=== PATIENT | female | born 1955 | race Caucasian/White ===

== ENCOUNTER 2020-09-14 10:06 | Inpatient (IN) ==
[2020-09-14 13:27] LABS: Calcium 10.4 mg/dL (8.6-10.3); Potassium 4.8 mEq/L (3.5-5.1)
[2020-09-14] MEDS ORDERED: *HR* Labetalol 20 MG/4 ML SYRINGE IVP ONE (13:34)
[2020-09-14 13:43] LABS: Basophils # 0.1 K/mcL (0.0-0.2); Basophils % 0.7 %; Eosinophils # 0.7 K/mcL (0.0-0.6); Eosinophils % 6.3 %; Hematocrit 43.2 % (35.3-44.9); Hemoglobin 13.9 g/dL (11.5-15.4); Immature Granulocytes % 0.9 % (0-4); Immature Platelets 3.8 % (1.1-6.1); Lymphocytes # 1.8 K/mcL (0.6-4.6); Lymphocytes % 15.7 %; Mean Corpuscular HGB Conc 32.2 g/dL (31.6-35.5); Mean Corpuscular Hemoglobin 33.2 pg (28.0-33.3); Mean Corpuscular Volume 103.1 fL (83.0-100.0); Mean Platelet Volume 11.9 fL (9.4-12.4); Monocytes # 1.1 K/mcL (0.0-1.3); Monocytes % 10.1 %; Neutrophils # 7.4 K/mcL (1.6-8.9); Platelet Count 113 K/mcL (140-400); Red Blood Count 4.19 M/mcL (3.82-4.97); Red Cell Distribution Width 14.2 % (11.5-14.5); Segmented Neutrophils % 66.3 %; Troponin I 0.05 ng/mL (< 0.04); White Blood Count 11.2 K/mcL (4.3-11.1)
[2020-09-14 14:02] LABS: Platelet Estimate Decreased (Normal)
[2020-09-14 14:03] LABS: Macrocytosis Present (Not Present)
[2020-09-14] MEDS ORDERED: lisinopriL 10 MG TABLET PO ONE (14:04)
[2020-09-14] MEDS ORDERED: *HR* OxyCODONE/APAP 5/325 TABLET PO ONE (14:04)
[2020-09-14] MEDS ORDERED: Furosemide 20 MG/2 ML VIAL IVP ONE (14:05)
[2020-09-14] MEDS ORDERED: Ondansetron 4 MG/2 ML VIAL IVP PRN (15:13)
[2020-09-14] MEDS ORDERED: Naloxone 0.4 MG/ML INJ IVP PRN (15:13)
[2020-09-14] MEDS ORDERED: Nitroglycerin 0.4 MG TAB.SUBL SL PRN (15:17)
[2020-09-14] MEDS ORDERED: Perflutren Lipid Microsphere 1.3 ML in 0.9 % Sodium Chloride 8.7 ML IVP PRN (15:18)
[2020-09-14] MEDS ORDERED: D5% in Water 1,000 ML IVC PRN (15:20)
[2020-09-14] MEDS ORDERED: *HR* Dextrose 50 % in Water (Vial) 50 ML VIAL IVP PRN (15:20)
[2020-09-14] MEDS ORDERED: Dextrose Gel 15 GM/37.5 ML TUBE PO PRN ×2 (15:20)
[2020-09-14] MEDS: Insulin LISPRO 300 UNITS/3 ML VIAL SUBQ SCH ×2 (17:40→20:03)
[2020-09-14] MEDS ORDERED: Furosemide 40 MG/4 ML VIAL IVP SCH (18:00)
[2020-09-14] MEDS ORDERED: Furosemide 40 MG/4 ML VIAL IVP ONE (18:00)
[2020-09-14 19:53] LABS: Estimated Average Glucose 128 mg/dl; Hemoglobin A1C 6.1 %
[2020-09-14 20:04] LABS: Bilirubin,Urine Negative (Negative); Blood,Urine Negative (Negative); Clarity,Urine Clear (Clear); Color,Urine Light-Yellow (Yellow); Glucose,Urine (UA) Normal (Normal); Ketones,Urine Negative (Negative); Leukocyte Esterase,Urine Negative (Negative); Mucus,Urine Few per lpf (None-Few); Nitrite,Urine Negative (Negative); PH,Urine 6.5 pH Units (5.0-8.0); Protein,Urine 200 mg/dL (Neg-Trace); RBC,Urine 0-3 per hpf (0-3); Specific Gravity,Urine 1.011 (1.010-1.025); Squamous Epithelial Cell,Urine Few per hpf (None-Few); Urobilinogen,Urine Normal (Normal)
[2020-09-14] MEDS: *HR* Heparin 5,000 UNIT/ML VIAL SQ SCH (21:54)
[2020-09-14] MEDS ORDERED: Acetaminophen 325 MG TABLET PO PRN (22:12)
[2020-09-15 01:20] LABS: Basophils # 0.1 K/mcL (0.0-0.2); Basophils % 0.6 %; Eosinophils # 0.4 K/mcL (0.0-0.6); Eosinophils % 3.8 %; Hemoglobin 12.7 g/dL (11.5-15.4); Immature Granulocytes % 0.7 % (0-4); Lymphocytes # 1.2 K/mcL (0.6-4.6); Lymphocytes % 12.9 %; Mean Corpuscular Hemoglobin 32.2 pg (28.0-33.3); Mean Corpuscular Volume 104.1 fL (83.0-100.0); Monocytes # 0.9 K/mcL (0.0-1.3); Monocytes % 9.6 %; Neutrophils # 6.8 K/mcL (1.6-8.9); Platelet Count 130 K/mcL (140-400); Red Blood Count 3.94 M/mcL (3.82-4.97); Red Cell Distribution Width 14.2 % (11.5-14.5); Segmented Neutrophils % 72.4 %; White Blood Count 9.5 K/mcL (4.3-11.1)
[2020-09-15 01:45] LABS: Albumin 4.1 g/dL (3.5-5.7); Albumin/Globulin Ratio 1.8 (1.1-2.2); Bilirubin,Total 0.6 mg/dL (0.3-1.0); Calcium 10.1 mg/dL (8.6-10.3); Chol/HDL Ratio 2.9 (0-4.9); Globulin 2.3 g/dL (2.4-3.5); Potassium 4.2 mEq/L (3.5-5.1); Total Protein 6.4 g/dL (6.4-8.9); Troponin I 0.06 ng/mL (< 0.04)
[2020-09-15] MEDS: *HR* Heparin 5,000 UNIT/ML VIAL SQ SCH ×3 (06:23→21:14)
[2020-09-15] MEDS: Insulin LISPRO 300 UNITS/3 ML VIAL SUBQ SCH ×4 (08:45→21:13)
[2020-09-15] MEDS: Aspirin 81 MG TAB.CHEW PO SCH (08:49)
[2020-09-15] MEDS: lisinopriL 10 MG TABLET PO SCH (08:50)
[2020-09-15] MEDS ORDERED: Furosemide 40 MG/4 ML VIAL IVP SCH (09:00)
[2020-09-15] MEDS ORDERED: Ipratropium/Albuterol Neb 3 ML IH PRN (16:16)
[2020-09-15] MEDS: Famotidine 20 MG TABLET PO SCH (16:39)
[2020-09-15] MEDS: carvediloL 6.25 MG TABLET PO SCH (16:39)
[2020-09-15] MEDS ORDERED: Latanoprost 2.5 ML BOTTLE BOTH EYES SCH (21:00)
[2020-09-15] MEDS ORDERED: NIFEdipine XL (24 HR) 30 MG TAB.ER.24 PO SCH (21:00)
[2020-09-15] MEDS: Ascorbic Acid 500 MG TABLET PO SCH (21:13)
[2020-09-16] MEDS: *HR* Heparin 5,000 UNIT/ML VIAL SQ SCH (05:15)
[2020-09-16 06:48] VITALS: TEMP 98.1
[2020-09-16 07:32] LABS: Hemoglobin 12.6 g/dL (11.5-15.4); Platelet Count 120 K/mcL (140-400); Red Cell Distribution Width 14.5 % (11.5-14.5)
[2020-09-16 07:33] LABS: Basophils # 0.1 K/mcL (0.0-0.2); Eosinophils # 0.5 K/mcL (0.0-0.6); Eosinophils % 7.2 %; Hematocrit 40.9 % (35.3-44.9); Immature Granulocytes % 0.6 % (0-4); Lymphocytes % 22.1 %; Mean Corpuscular HGB Conc 30.8 g/dL (31.6-35.5); Mean Corpuscular Hemoglobin 32.5 pg (28.0-33.3); Mean Corpuscular Volume 105.4 fL (83.0-100.0); Mean Platelet Volume 10.7 fL (9.4-12.4); Monocytes # 0.9 K/mcL (0.0-1.3); Monocytes % 12.8 %; Neutrophils # 3.9 K/mcL (1.6-8.9); Red Blood Count 3.88 M/mcL (3.82-4.97); Segmented Neutrophils % 56.3 %
[2020-09-16 07:35] LABS: Lymphocytes # 1.6 K/mcL (0.6-4.6)
[2020-09-16] MEDS: Insulin LISPRO 300 UNITS/3 ML VIAL SUBQ SCH ×2 (07:48→12:09)
[2020-09-16 07:51] LABS: Calcium 10.1 mg/dL (8.6-10.3); Magnesium 2.1 mg/dL (1.6-2.6); Potassium 4.2 mEq/L (3.5-5.1)
[2020-09-16] MEDS: carvediloL 6.25 MG TABLET PO SCH (08:04)
[2020-09-16] MEDS: lisinopriL 10 MG TABLET PO SCH (08:04)
[2020-09-16] MEDS: Ascorbic Acid 500 MG TABLET PO SCH (08:04)
[2020-09-16] MEDS: Aspirin 81 MG TAB.CHEW PO SCH (08:04)
[2020-09-16] MEDS: Famotidine 20 MG TABLET PO SCH (08:05)
[2020-09-16] MEDS ORDERED: calcitrioL 0.25 MCG CAPSULE PO SCH (09:00)
[2020-09-16] MEDS ORDERED: allopurinoL 100 MG TABLET PO SCH (09:00)
[2020-09-16 11:24] VITALS: BP 144/63; PULSE 52; O2SAT 96
== END 2020-09-16 12:00 | disposition home or self-care (01) | DRG 199 ==
LOC: EMEROOARM 10:06 → 2ANU 10:06 → SUATTDRO 18:02
PROVIDERS: ADMIT Internal Medicine; ATTEND Pharmacist

== ENCOUNTER 2021-06-26 18:05 | Inpatient (IN) ==
[2021-06-26 19:01] LABS: Red Cell Distribution Width 15.5 % (11.5-14.5)
[2021-06-26 19:03] LABS: Basophils # 0.1 K/mcL (0.0-0.2); Eosinophils # 0.6 K/mcL (0.0-0.6); Eosinophils % 6.5 %; Hematocrit 41.7 % (35.3-44.9); Immature Granulocytes % 1.4 % (0-4); Immature Platelets 6.3 % (1.1-6.1); Lymphocytes % 11.8 %; Mean Corpuscular HGB Conc 31.2 g/dL (31.6-35.5); Mean Corpuscular Hemoglobin 33.4 pg (28.0-33.3); Mean Corpuscular Volume 107.2 fL (83.0-100.0); Mean Platelet Volume 11.4 fL (9.4-12.4); Monocytes # 0.9 K/mcL (0.0-1.3); Monocytes % 9.9 %; Nucleated Red Blood Cells 0.3 /100 WBC (0); Platelet Count 104 K/mcL (140-400); Red Blood Count 3.89 M/mcL (3.82-4.97); Segmented Neutrophils % 69.4 %; White Blood Count 8.6 K/mcL (4.3-11.1)
[2021-06-26] MEDS ORDERED: Aspirin 325 MG TABLET PO ONE (19:04)
[2021-06-26 19:08] LABS: INR 1.3; Prothrombin Time 14.2 Seconds (9.4-12.1)
[2021-06-26 19:11] LABS: Activated Partial Thrombo Time 38.7 Seconds (26.0-36.0)
[2021-06-26 19:25] LABS: Troponin I 0.08 ng/mL (< 0.04)
[2021-06-26 19:27] LABS: Albumin/Globulin Ratio 1.6 (1.1-2.2); Bilirubin,Direct 0.1 mg/dL (0.0-0.2); Bilirubin,Indirect 0.9 mg/dL (0.0-1.0); Calcium 9.8 mg/dL (8.6-10.3); Globulin 2.5 g/dL (2.4-3.5); Potassium 3.9 mEq/L (3.5-5.1); Total Protein 6.5 g/dL (6.4-8.9)
[2021-06-26] MEDS ORDERED: Furosemide 40 MG/4 ML VIAL IVP ONE (19:50)
[2021-06-26 20:14] LABS: Influenza A PCR Negative (Negative); Influenza B PCR Negative (Negative); Resp. Syncytial Virus PCR Negative (Negative)
[2021-06-26 20:15] LABS: SARS-CoV-2 by PCR (In House) Negative (Negative)
[2021-06-26] MEDS ORDERED: Naloxone 0.4 MG/ML INJ IVP PRN (20:27)
[2021-06-26] MEDS ORDERED: Perflutren Lipid Microsphere 1.3 ML in 0.9 % Sodium Chloride 8.7 ML IVP PRN (21:11)
[2021-06-26] MEDS ORDERED: niCARdipine 20 MG/200 ML MLS IVC ONE (23:58)
[2021-06-27] MEDS: niCARdipine 20 MG/200 ML MLS IVC SCH ×8 (00:03→23:07)
[2021-06-27] MEDS: Ondansetron 4 MG/2 ML VIAL IVP PRN ×2 (00:05→08:34)
[2021-06-27 01:57] LABS: Hematocrit 39.6 % (35.3-44.9); Hemoglobin 12.1 g/dL (11.5-15.4); Mean Corpuscular HGB Conc 30.6 g/dL (31.6-35.5); Mean Corpuscular Hemoglobin 32.9 pg (28.0-33.3); Mean Corpuscular Volume 107.6 fL (83.0-100.0); Mean Platelet Volume 11.2 fL (9.4-12.4); Platelet Count 101 K/mcL (140-400); Red Blood Count 3.68 M/mcL (3.82-4.97); Red Cell Distribution Width 15.4 % (11.5-14.5); White Blood Count 8.7 K/mcL (4.3-11.1)
[2021-06-27 02:13] LABS: Calcium 9.4 mg/dL (8.6-10.3); Potassium 3.6 mEq/L (3.5-5.1)
[2021-06-27 02:32] LABS: Troponin I 0.07 ng/mL (< 0.04)
[2021-06-27] MEDS ORDERED: Furosemide 40 MG/4 ML VIAL IVP SCH (09:00)
[2021-06-27] MEDS ORDERED: *HR* Labetalol 20 MG/4 ML SYRINGE IVP ONE (09:05)
[2021-06-27] MEDS ORDERED: Metoclopramide 10 MG/2 ML VIAL IVP ONE (09:17)
[2021-06-27] MEDS ORDERED: Dextrose 4 GM Chewable Tablets PO PRN ×2 (09:25)
[2021-06-27] MEDS ORDERED: *HR* Dextrose 50 % in Water (Syg) 50 ML SYRINGE IVP PRN (09:25)
[2021-06-27] MEDS ORDERED: D5% in Water 1,000 ML IVC PRN (09:25)
[2021-06-27 11:19] LABS: Estimated Average Glucose 114 mg/dl; Hemoglobin A1C 5.6 %
[2021-06-27] MEDS: Insulin LISPRO 300 UNITS/3 ML VIAL SUBQ SCH ×3 (11:49→20:34)
[2021-06-27] MEDS: *HR* Heparin 5,000 UNIT/ML VIAL SQ SCH (20:42)
[2021-06-28] MEDS: niCARdipine 20 MG/200 ML MLS IVC SCH ×6 (01:42→18:30)
[2021-06-28] MEDS: *HR* Heparin 5,000 UNIT/ML VIAL SQ SCH ×3 (05:21→21:23)
[2021-06-28 06:11] LABS: Hematocrit 40.1 % (35.3-44.9); Hemoglobin 12.1 g/dL (11.5-15.4); Mean Corpuscular HGB Conc 30.2 g/dL (31.6-35.5); Mean Corpuscular Hemoglobin 32.8 pg (28.0-33.3); Mean Corpuscular Volume 108.7 fL (83.0-100.0); Platelet Count 115 K/mcL (140-400); Red Blood Count 3.69 M/mcL (3.82-4.97); Red Cell Distribution Width 15.2 % (11.5-14.5); White Blood Count 8.2 K/mcL (4.3-11.1)
[2021-06-28 06:30] LABS: INR 1.2; Prothrombin Time 13.9 Seconds (9.4-12.1)
[2021-06-28 06:31] LABS: Albumin 3.7 g/dL (3.5-5.7); Albumin/Globulin Ratio 1.8 (1.1-2.2); Bilirubin,Total 0.9 mg/dL (0.3-1.0); Calcium 9.3 mg/dL (8.6-10.3); Globulin 2.1 g/dL (2.4-3.5); Magnesium 1.9 mg/dL (1.6-2.6); Potassium 3.9 mEq/L (3.5-5.1); Total Protein 5.8 g/dL (6.4-8.9)
[2021-06-28 06:53] LABS: Thyroid Stimulating Hormone 2.532 mcIU/mL (0.340-5.600)
[2021-06-28] MEDS ORDERED: Ondansetron ODT 4 MG TAB.RAPDIS PO PRN (07:51)
[2021-06-28] MEDS: Insulin LISPRO 300 UNITS/3 ML VIAL SUBQ SCH ×4 (08:02→19:41)
[2021-06-28] MEDS: Furosemide 40 MG/4 ML VIAL IVP SCH ×2 (08:38→16:44)
[2021-06-28] MEDS: lisinopriL 20 MG TABLET PO SCH ×2 (08:40→21:23)
[2021-06-28] MEDS: Aspirin Enteric Coated 81 MG Tablet PO SCH (08:41)
[2021-06-28] MEDS: allopurinoL 100 MG TABLET PO SCH (08:41)
[2021-06-28] MEDS: Famotidine 20 MG TABLET PO SCH (08:41)
[2021-06-29] MEDS: niCARdipine 20 MG/200 ML MLS IVC SCH (01:06)
[2021-06-29 02:30] LABS: Basophils # 0.1 K/mcL (0.0-0.2); Basophils % 0.6 %; Eosinophils % 11.5 %; Hematocrit 37.4 % (35.3-44.9); Hemoglobin 11.3 g/dL (11.5-15.4); Immature Granulocytes % 0.7 % (0-4); Lymphocytes # 1.1 K/mcL (0.6-4.6); Lymphocytes % 12.6 %; Mean Corpuscular HGB Conc 30.2 g/dL (31.6-35.5); Mean Corpuscular Hemoglobin 32.9 pg (28.0-33.3); Mean Platelet Volume 11.1 fL (9.4-12.4); Monocytes # 1.2 K/mcL (0.0-1.3); Monocytes % 13.2 %; Neutrophils # 5.3 K/mcL (1.6-8.9); Nucleated Red Blood Cells 0.3 /100 WBC (0); Platelet Count 107 K/mcL (140-400); Red Blood Count 3.43 M/mcL (3.82-4.97); Segmented Neutrophils % 61.4 %; White Blood Count 8.7 K/mcL (4.3-11.1)
[2021-06-29 02:45] LABS: Calcium 8.8 mg/dL (8.6-10.3); Potassium 4.1 mEq/L (3.5-5.1)
[2021-06-29] MEDS: *HR* Heparin 5,000 UNIT/ML VIAL SQ SCH ×3 (04:28→21:04)
[2021-06-29] MEDS: lisinopriL 20 MG TABLET PO SCH ×2 (08:14→21:04)
[2021-06-29] MEDS: Aspirin Enteric Coated 81 MG Tablet PO SCH (08:14)
[2021-06-29] MEDS: Famotidine 20 MG TABLET PO SCH (08:14)
[2021-06-29] MEDS: carvediloL 6.25 MG TABLET PO SCH ×2 (08:14→17:36)
[2021-06-29] MEDS: Insulin LISPRO 300 UNITS/3 ML VIAL SUBQ SCH ×4 (08:14→19:27)
[2021-06-29] MEDS: allopurinoL 100 MG TABLET PO SCH (08:14)
[2021-06-29] MEDS: Furosemide 40 MG/4 ML VIAL IVP SCH ×2 (08:15→17:37)
[2021-06-29] MEDS: hydrALAZINE 25 MG TABLET PO SCH ×2 (08:15→16:32)
[2021-06-30] MEDS: hydrALAZINE 25 MG TABLET PO SCH ×3 (01:36→17:03)
[2021-06-30 05:32] LABS: Basophils % 0.7 %; Eosinophils % 14.4 %; Red Blood Count 3.44 M/mcL (3.82-4.97)
[2021-06-30 05:33] LABS: Basophils # 0.1 K/mcL (0.0-0.2); Eosinophils # 1.2 K/mcL (0.0-0.6); Hematocrit 37.4 % (35.3-44.9); Hemoglobin 11.5 g/dL (11.5-15.4); Immature Granulocytes % 0.7 % (0-4); Immature Platelets 3.6 % (1.1-6.1); Lymphocytes # 1.2 K/mcL (0.6-4.6); Lymphocytes % 14.7 %; Mean Corpuscular HGB Conc 30.7 g/dL (31.6-35.5); Mean Corpuscular Hemoglobin 33.4 pg (28.0-33.3); Mean Corpuscular Volume 108.7 fL (83.0-100.0); Mean Platelet Volume 10.5 fL (9.4-12.4); Monocytes # 1.1 K/mcL (0.0-1.3); Monocytes % 13.2 %; Neutrophils # 4.7 K/mcL (1.6-8.9); Platelet Count 101 K/mcL (140-400); Red Cell Distribution Width 14.8 % (11.5-14.5); Segmented Neutrophils % 56.3 %; White Blood Count 8.4 K/mcL (4.3-11.1)
[2021-06-30 05:49] LABS: Albumin 3.3 g/dL (3.5-5.7); Albumin/Globulin Ratio 1.5 (1.1-2.2); Bilirubin,Direct 0.3 mg/dL (0.0-0.2); Bilirubin,Indirect 0.5 mg/dL (0.0-1.0); Bilirubin,Total 0.8 mg/dL (0.3-1.0); Calcium 8.9 mg/dL (8.6-10.3); Globulin 2.2 g/dL (2.4-3.5); Total Protein 5.5 g/dL (6.4-8.9)
[2021-06-30] MEDS: *HR* Heparin 5,000 UNIT/ML VIAL SQ SCH ×3 (06:30→20:19)
[2021-06-30] MEDS: Insulin LISPRO 300 UNITS/3 ML VIAL SUBQ SCH ×4 (07:25→20:16)
[2021-06-30] MEDS: carvediloL 6.25 MG TABLET PO SCH ×2 (08:12→17:02)
[2021-06-30] MEDS: Famotidine 20 MG TABLET PO SCH (08:12)
[2021-06-30] MEDS: Furosemide 40 MG/4 ML VIAL IVP SCH (08:12)
[2021-06-30] MEDS: Aspirin Enteric Coated 81 MG Tablet PO SCH (08:12)
[2021-06-30] MEDS: lisinopriL 20 MG TABLET PO SCH (08:12)
[2021-06-30] MEDS: allopurinoL 100 MG TABLET PO SCH (08:13)
[2021-06-30] MEDS ORDERED: Albumin 25% 25gram/100mL 25 GM/100 ML IV.SOLN IVPB ONE (09:57)
[2021-07-01] MEDS: hydrALAZINE 25 MG TABLET PO SCH ×3 (00:24→15:45)
[2021-07-01 00:56] LABS: Bacteria,Urine Few per hpf (None-Few); Bilirubin,Urine Negative (Negative); Blood,Urine Large (Negative); Clarity,Urine Turbid (Clear); Color,Urine Light-Yellow (Yellow); Glucose,Urine (UA) Normal (Normal); Hyaline Casts,Urine Few per lpf (None Seen); Ketones,Urine Negative (Negative); Leukocyte Esterase,Urine Large (Negative); Nitrite,Urine Negative (Negative); Protein,Urine 200 mg/dL (Neg-Trace); RBC,Urine 50-100 per hpf (0-3); Specific Gravity,Urine 1.009 (1.010-1.025); Squamous Epithelial Cell,Urine Few per hpf (None-Few); Urobilinogen,Urine Normal (Normal); WBC,Urine 50-100 per hpf (0-3)
[2021-07-01 04:50] LABS: Hematocrit 40.3 % (35.3-44.9)
[2021-07-01 04:53] LABS: Basophils # 0.1 K/mcL (0.0-0.2); Basophils % 0.8 %; Eosinophils # 1.6 K/mcL (0.0-0.6); Eosinophils % 15.5 %; Hemoglobin 12.3 g/dL (11.5-15.4); Immature Granulocytes % 0.7 % (0-4); Immature Platelets 4.5 % (1.1-6.1); Lymphocytes # 1.4 K/mcL (0.6-4.6); Lymphocytes % 13.9 %; Mean Corpuscular HGB Conc 30.5 g/dL (31.6-35.5); Mean Corpuscular Hemoglobin 33.2 pg (28.0-33.3); Mean Corpuscular Volume 108.9 fL (83.0-100.0); Monocytes # 1.2 K/mcL (0.0-1.3); Monocytes % 12.2 %; Neutrophils # 5.8 K/mcL (1.6-8.9); Nucleated Red Blood Cells 0.2 /100 WBC (0); Red Cell Distribution Width 14.9 % (11.5-14.5); Segmented Neutrophils % 56.9 %; White Blood Count 10.2 K/mcL (4.3-11.1)
[2021-07-01 04:55] LABS: Platelet Count 93 K/mcL (140-400)
[2021-07-01 05:25] LABS: Calcium 9.1 mg/dL (8.6-10.3); Potassium 4.5 mEq/L (3.5-5.1)
[2021-07-01] MEDS: *HR* Heparin 5,000 UNIT/ML VIAL SQ SCH ×3 (06:39→20:33)
[2021-07-01] MEDS: Insulin LISPRO 300 UNITS/3 ML VIAL SUBQ SCH ×4 (07:35→20:35)
[2021-07-01] MEDS: carvediloL 6.25 MG TABLET PO SCH ×2 (07:36→15:44)
[2021-07-01] MEDS: allopurinoL 100 MG TABLET PO SCH (07:36)
[2021-07-01] MEDS: Aspirin Enteric Coated 81 MG Tablet PO SCH (07:36)
[2021-07-01] MEDS: Famotidine 20 MG TABLET PO SCH (07:39)
[2021-07-02] MEDS: hydrALAZINE 25 MG TABLET PO SCH ×3 (01:04→17:54)
[2021-07-02] MEDS: *HR* Heparin 5,000 UNIT/ML VIAL SQ SCH ×2 (05:07→13:33)
[2021-07-02 06:58] LABS: Basophils # 0.1 K/mcL (0.0-0.2); Basophils % 0.8 %; Eosinophils # 1.5 K/mcL (0.0-0.6); Eosinophils % 17.5 %; Hematocrit 36.2 % (35.3-44.9); Hemoglobin 11.3 g/dL (11.5-15.4); Immature Granulocytes % 0.6 % (0-4); Lymphocytes % 14.5 %; Mean Corpuscular HGB Conc 31.2 g/dL (31.6-35.5); Mean Corpuscular Hemoglobin 33.6 pg (28.0-33.3); Mean Corpuscular Volume 107.7 fL (83.0-100.0); Mean Platelet Volume 11.4 fL (9.4-12.4); Monocytes # 1.2 K/mcL (0.0-1.3); Neutrophils # 4.5 K/mcL (1.6-8.9); Red Blood Count 3.36 M/mcL (3.82-4.97); Red Cell Distribution Width 14.8 % (11.5-14.5); Segmented Neutrophils % 52.6 %; White Blood Count 8.6 K/mcL (4.3-11.1)
[2021-07-02 06:59] LABS: Lymphocytes # 1.3 K/mcL (0.6-4.6); Platelet Count 94 K/mcL (140-400)
[2021-07-02 07:35] LABS: Calcium 9.2 mg/dL (8.6-10.3); Potassium 4.3 mEq/L (3.5-5.1)
[2021-07-02] MEDS: Famotidine 20 MG TABLET PO SCH (08:56)
[2021-07-02] MEDS: allopurinoL 100 MG TABLET PO SCH (08:56)
[2021-07-02] MEDS: carvediloL 6.25 MG TABLET PO SCH ×2 (08:56→17:52)
[2021-07-02] MEDS: Aspirin Enteric Coated 81 MG Tablet PO SCH (08:56)
[2021-07-02] MEDS: Insulin LISPRO 300 UNITS/3 ML VIAL SUBQ SCH ×3 (08:59→17:53)
[2021-07-02 14:47] VITALS: BP 138/96; PULSE 78; TEMP 98; O2SAT 96
[2021-07-02 15:51] LABS: Influenza A PCR Negative (Negative); Influenza B PCR Negative (Negative); Resp. Syncytial Virus PCR Negative (Negative)
[2021-07-02 15:57] LABS: SARS-CoV-2 by PCR (In House) Negative (Negative)
[2021-07-03] MEDS ORDERED: Famotidine 20 MG TABLET PO SCH (09:00)
== END 2021-07-02 18:55 | DRG 199 ==
LOC: 2NENU 18:05 → EMEROOARM 18:05 → SUATTDRO 20:33 → 2NENU 22:00 → 2NNU 06-28 06:06 → 2NENU 07-01 18:58
PROVIDERS: ADMIT Internal Medicine; ATTEND Internal Medicine

== ENCOUNTER 2021-08-05 19:17 | Inpatient (IN) ==
[2021-08-05 20:44] LABS: Basophils # 0.1 K/mcL (0.0-0.2); Basophils % 0.9 %; Eosinophils # 1.5 K/mcL (0.0-0.6); Eosinophils % 18.1 %; Hemoglobin 9.9 g/dL (11.5-15.4); Immature Granulocytes % 3.2 % (0-4); Lymphocytes # 1.1 K/mcL (0.6-4.6); Lymphocytes % 14.1 %; Mean Corpuscular Hemoglobin 33.2 pg (28.0-33.3); Mean Corpuscular Volume 110.7 fL (83.0-100.0); Monocytes # 0.9 K/mcL (0.0-1.3); Monocytes % 11.5 %; Neutrophils # 4.2 K/mcL (1.6-8.9); Nucleated Red Blood Cells 1.1 /100 WBC (0); Platelet Count 135 K/mcL (140-400); Red Blood Count 2.98 M/mcL (3.82-4.97); Red Cell Distribution Width 15.4 % (11.5-14.5); Segmented Neutrophils % 52.2 %
[2021-08-05 21:00] LABS: Macrocytosis Present (Not Present); Platelet Estimate Decreased (Normal)
[2021-08-05 21:02] LABS: Calcium 9.6 mg/dL (8.6-10.3); Potassium 4.1 mEq/L (3.5-5.1)
[2021-08-05 21:06] LABS: Troponin I 0.1 ng/mL (< 0.04)
[2021-08-05] MEDS ORDERED: Furosemide 40 MG/4 ML VIAL IVP ONE (22:57)
[2021-08-06] MEDS ORDERED: Naloxone 0.4 MG/ML INJ IVP PRN (01:08)
[2021-08-06] MEDS ORDERED: Dextrose Gel 15 GM/37.5 ML TUBE PO PRN ×2 (02:30)
[2021-08-06] MEDS ORDERED: D5% in Water 1,000 ML IVC PRN (02:30)
[2021-08-06] MEDS ORDERED: *HR* Dextrose 50 % in Water (Syg) 50 ML SYRINGE IVP PRN (02:30)
[2021-08-06] MEDS: Aspirin 81 MG TAB.CHEW PO SCH (08:30)
[2021-08-06] MEDS: hydrALAZINE 25 MG TABLET PO SCH ×3 (08:30→22:26)
[2021-08-06] MEDS: carvediloL 6.25 MG TABLET PO SCH ×2 (08:30→17:15)
[2021-08-06 09:50] LABS: Hematocrit 32.5 % (35.3-44.9); Hemoglobin 9.5 g/dL (11.5-15.4); Mean Corpuscular HGB Conc 29.2 g/dL (31.6-35.5); Mean Corpuscular Hemoglobin 32.9 pg (28.0-33.3); Mean Corpuscular Volume 112.5 fL (83.0-100.0); Mean Platelet Volume 10.6 fL (9.4-12.4); Nucleated Red Blood Cells 1.1 /100 WBC (0); Platelet Count 134 K/mcL (140-400); Red Blood Count 2.89 M/mcL (3.82-4.97); Red Cell Distribution Width 15.3 % (11.5-14.5)
[2021-08-06 10:00] LABS: INR 1.2; Prothrombin Time 13.2 Seconds (9.4-12.1)
[2021-08-06 10:01] LABS: Activated Partial Thrombo Time 40.2 Seconds (26.0-36.0)
[2021-08-06 10:07] LABS: Albumin 3.6 g/dL (3.5-5.7); Albumin/Globulin Ratio 1.4 (1.1-2.2); Bilirubin,Total 0.6 mg/dL (0.3-1.0); Calcium 9.3 mg/dL (8.6-10.3); Globulin 2.5 g/dL (2.4-3.5); Phosphorous 5.3 mg/dL (2.7-4.5); Potassium 4.4 mEq/L (3.5-5.1); Total Protein 6.1 g/dL (6.4-8.9)
[2021-08-06 10:09] LABS: % Iron Saturation 17 % (15-50); Iron 45 mcg/dL (50-170); Transferrin 190 mg/dL (203-362)
[2021-08-06 10:25] LABS: Ferritin 1068 ng/mL (10-120)
[2021-08-06 10:33] LABS: Hepatitis B Surface Antibody < 3.10 mIU/mL
[2021-08-06 10:43] LABS: Folate 8.2 ng/mL (3.0-16.0); Hepatitis B Surface Antigen Nonreactive (Nonreactive)
[2021-08-06 10:49] LABS: Eosinophils # 1.9 K/mcL (0.0-0.6); Lymphocytes # 1.1 K/mcL (0.6-4.6); Monocytes # 0.8 K/mcL (0.0-1.3); Neutrophils # 4.2 K/mcL (1.6-8.9); Platelet Estimate Slight Decrease (Normal)
[2021-08-06] MEDS: Ondansetron 4 MG/2 ML VIAL IVP PRN ×2 (10:49→17:47)
[2021-08-06 10:50] LABS: Anisocytosis 1+ (Not Present); Macrocytosis Present (Not Present)
[2021-08-06] MEDS ORDERED: 0.9 % Sodium Chloride 250 ML IVC PRN (11:08)
[2021-08-06] MEDS ORDERED: 0.9 % Sodium Chloride 2,000 ML PRIME SCH (11:15)
[2021-08-06] MEDS: Insulin LISPRO 300 UNITS/3 ML VIAL SUBQ SCH ×2 (12:24→16:18)
[2021-08-06] MEDS: *HR* OxyCODONE/APAP 5/325 TABLET PO PRN ×2 (14:30→22:26)
[2021-08-06] MEDS: *HR* Heparin 5,000 UNIT/ML VIAL SQ SCH ×2 (14:31→22:25)
[2021-08-06 20:59] LABS: Bacteria,Urine Few per hpf (None-Few); Bilirubin,Urine Negative (Negative); Blood,Urine Negative (Negative); Clarity,Urine Clear (Clear); Color,Urine Light-Yellow (Yellow); Glucose,Urine (UA) Normal (Normal); Hyaline Casts,Urine Few per lpf (None Seen); Ketones,Urine Negative (Negative); Leukocyte Esterase,Urine Trace (Negative); Mucus,Urine Few per lpf (None-Few); Nitrite,Urine Negative (Negative); PH,Urine 6.5 pH Units (5.0-8.0); Protein,Urine >=300 mg/dL (Neg-Trace); RBC,Urine 0-3 per hpf (0-3); Specific Gravity,Urine 1.012 (1.010-1.025); Squamous Epithelial Cell,Urine Few per hpf (None-Few); Urobilinogen,Urine Normal (Normal)
[2021-08-06] MEDS: Melatonin 3 MG TABLET PO PRN (22:26)
[2021-08-06 23:22] LABS: Sodium, Urine 69.9 mEq/L
[2021-08-07] MEDS: *HR* Heparin 5,000 UNIT/ML VIAL SQ SCH ×4 (06:37→20:50)
[2021-08-07 07:07] LABS: Hemoglobin 8.2 g/dL (11.5-15.4); Immature Granulocytes % 1.2 % (0-4); Mean Corpuscular Hemoglobin 32.5 pg (28.0-33.3); Nucleated Red Blood Cells 0.9 /100 WBC (0); Red Blood Count 2.52 M/mcL (3.82-4.97); Red Cell Distribution Width 15.4 % (11.5-14.5); White Blood Count 7.5 K/mcL (4.3-11.1)
[2021-08-07 07:09] LABS: Basophils # 0.1 K/mcL (0.0-0.2); Basophils % 0.9 %; Eosinophils # 1.1 K/mcL (0.0-0.6); Immature Platelets 5.4 % (1.1-6.1); Lymphocytes # 1.1 K/mcL (0.6-4.6); Lymphocytes % 14.2 %; Mean Corpuscular HGB Conc 29.3 g/dL (31.6-35.5); Mean Corpuscular Volume 111.1 fL (83.0-100.0); Mean Platelet Volume 10.5 fL (9.4-12.4); Monocytes # 0.7 K/mcL (0.0-1.3); Monocytes % 9.5 %; Neutrophils # 4.4 K/mcL (1.6-8.9); Segmented Neutrophils % 59.2 %
[2021-08-07] MEDS: Insulin LISPRO 300 UNITS/3 ML VIAL SUBQ SCH ×3 (07:13→15:50)
[2021-08-07 07:36] LABS: Calcium 8.8 mg/dL (8.6-10.3); Magnesium 1.9 mg/dL (1.6-2.6); Phosphorous 4.9 mg/dL (2.7-4.5); Potassium 4.3 mEq/L (3.5-5.1)
[2021-08-07 07:56] LABS: Platelet Count 80 K/mcL (140-400)
[2021-08-07 07:58] LABS: Macrocytosis Present (Not Present); Platelet Estimate Decreased (Normal)
[2021-08-07 08:00] LABS: Hypochromasia Present (Not Present); Polychromasia 1+ (Not Present)
[2021-08-07] MEDS ORDERED: 0.9 % Sodium Chloride 250 ML IVC PRN (08:27)
[2021-08-07] MEDS: carvediloL 6.25 MG TABLET PO SCH ×2 (09:14→15:50)
[2021-08-07] MEDS: hydrALAZINE 25 MG TABLET PO SCH ×3 (09:14→23:52)
[2021-08-07 09:27] LABS: Vitamin D 25 Hydroxy 6 ng/mL (30-80)
[2021-08-07] MEDS: Aspirin 81 MG TAB.CHEW PO SCH (10:20)
[2021-08-07 10:22] LABS: Hepatitis B Core IgM Nonreactive (Nonreactive)
[2021-08-07] MEDS: Ondansetron 4 MG/2 ML VIAL IVP PRN (13:58)
[2021-08-07] MEDS: Nystatin POWDER 30 GM BOTTLE TP SCH (15:50)
[2021-08-07] MEDS: *HR* OxyCODONE/APAP 5/325 TABLET PO PRN (15:50)
[2021-08-07] MEDS: Famotidine 20 MG TABLET PO SCH (20:46)
[2021-08-07] MEDS: Latanoprost 2.5 ML BOTTLE BOTH EYES SCH (20:56)
[2021-08-08] MEDS: *HR* Heparin 5,000 UNIT/ML VIAL SQ SCH ×3 (05:49→21:14)
[2021-08-08] MEDS: Insulin LISPRO 300 UNITS/3 ML VIAL SUBQ SCH ×3 (07:02→16:58)
[2021-08-08] MEDS: Aspirin 81 MG TAB.CHEW PO SCH (08:30)
[2021-08-08] MEDS: calcitrioL 0.25 MCG CAPSULE PO SCH (08:30)
[2021-08-08] MEDS: hydrALAZINE 25 MG TABLET PO SCH ×3 (08:30→23:46)
[2021-08-08] MEDS: allopurinoL 100 MG TABLET PO SCH (08:30)
[2021-08-08] MEDS: *HR* OxyCODONE/APAP 5/325 TABLET PO PRN (08:30)
[2021-08-08] MEDS: carvediloL 6.25 MG TABLET PO SCH ×2 (08:31→17:00)
[2021-08-08] MEDS: Nystatin POWDER 30 GM BOTTLE TP SCH (08:32)
[2021-08-08 10:12] LABS: Calcium 8.8 mg/dL (8.6-10.3); Magnesium 1.9 mg/dL (1.6-2.6); Phosphorous 4.1 mg/dL (2.7-4.5); Potassium 4.7 mEq/L (3.5-5.1)
[2021-08-08 14:32] LABS: Hemoglobin 8.2 g/dL (11.5-15.4); Nucleated Red Blood Cells 0.4 /100 WBC (0)
[2021-08-08 14:34] LABS: Hematocrit 27.7 % (35.3-44.9); Immature Platelets 6.8 % (1.1-6.1); Mean Corpuscular HGB Conc 29.6 g/dL (31.6-35.5); Mean Corpuscular Hemoglobin 33.3 pg (28.0-33.3); Mean Corpuscular Volume 112.6 fL (83.0-100.0); Mean Platelet Volume 11.4 fL (9.4-12.4); Neutrophils # 4.3 K/mcL (1.6-8.9); Red Blood Count 2.46 M/mcL (3.82-4.97); Red Cell Distribution Width 15.6 % (11.5-14.5); White Blood Count 7.7 K/mcL (4.3-11.1)
[2021-08-08 15:14] LABS: Platelet Count 55 K/mcL (140-400)
[2021-08-08 15:17] LABS: Anisocytosis 1+ (Not Present); Eosinophils # 1.1 K/mcL (0.0-0.6); Lymphocytes # 1.7 K/mcL (0.6-4.6); Monocytes # 0.6 K/mcL (0.0-1.3); Platelet Estimate Decreased (Normal)
[2021-08-08 15:18] LABS: Hypochromasia Present (Not Present); Macrocytosis Present (Not Present)
[2021-08-08] MEDS: Famotidine 20 MG TABLET PO SCH (21:13)
[2021-08-08] MEDS: Latanoprost 2.5 ML BOTTLE BOTH EYES SCH (21:16)
[2021-08-09 03:14] LABS: Phosphorous 4.6 mg/dL (2.7-4.5); Potassium 4.6 mEq/L (3.5-5.1)
[2021-08-09 03:18] LABS: Basophils # 0.1 K/mcL (0.0-0.2); Basophils % 0.8 %; Eosinophils # 1.2 K/mcL (0.0-0.6); Eosinophils % 18.3 %; Hematocrit 27.2 % (35.3-44.9); Immature Granulocytes % 0.8 % (0-4); Immature Platelets 6.3 % (1.1-6.1); Lymphocytes # 1.5 K/mcL (0.6-4.6); Mean Corpuscular HGB Conc 29.4 g/dL (31.6-35.5); Mean Corpuscular Hemoglobin 32.9 pg (28.0-33.3); Mean Corpuscular Volume 111.9 fL (83.0-100.0); Mean Platelet Volume 11.3 fL (9.4-12.4); Monocytes # 0.8 K/mcL (0.0-1.3); Monocytes % 11.6 %; Neutrophils # 3.1 K/mcL (1.6-8.9); Red Blood Count 2.43 M/mcL (3.82-4.97); Red Cell Distribution Width 15.3 % (11.5-14.5); Segmented Neutrophils % 46.5 %; White Blood Count 6.7 K/mcL (4.3-11.1)
[2021-08-09 03:20] LABS: Platelet Count 56 K/mcL (140-400)
[2021-08-09] MEDS: *HR* OxyCODONE/APAP 5/325 TABLET PO PRN (03:59)
[2021-08-09 04:57] LABS: Anisocytosis 1+ (Not Present); Hypochromasia Present (Not Present); Macrocytosis Present (Not Present); Platelet Estimate Decreased (Normal)
[2021-08-09] MEDS: *HR* Heparin 5,000 UNIT/ML VIAL SQ SCH (05:26)
[2021-08-09] MEDS: Insulin LISPRO 300 UNITS/3 ML VIAL SUBQ SCH ×3 (07:46→16:14)
[2021-08-09] MEDS: calcitrioL 0.25 MCG CAPSULE PO SCH (08:39)
[2021-08-09] MEDS: Aspirin 81 MG TAB.CHEW PO SCH (08:39)
[2021-08-09] MEDS: hydrALAZINE 25 MG TABLET PO SCH ×2 (08:39→16:20)
[2021-08-09] MEDS: carvediloL 6.25 MG TABLET PO SCH ×2 (08:39→16:20)
[2021-08-09] MEDS: allopurinoL 100 MG TABLET PO SCH (08:40)
[2021-08-09] MEDS: Nystatin POWDER 30 GM BOTTLE TP SCH (08:40)
[2021-08-09] MEDS ORDERED: 0.9 % Sodium Chloride 250 ML IVC PRN (08:48)
[2021-08-09] MEDS: Ethyl Chloride Spray Bottle (104 SPRAY/BOTTLE) TP PRN (13:07)
[2021-08-09] MEDS: Ondansetron 4 MG/2 ML VIAL IVP PRN ×2 (14:44→17:49)
[2021-08-09] MEDS: Latanoprost 2.5 ML BOTTLE BOTH EYES SCH (20:11)
[2021-08-09] MEDS: Famotidine 20 MG TABLET PO SCH (20:11)
[2021-08-10] MEDS: hydrALAZINE 25 MG TABLET PO SCH ×4 (00:10→23:22)
[2021-08-10 06:44] LABS: Basophils % 0.8 %
[2021-08-10 06:46] LABS: Basophils # 0.1 K/mcL (0.0-0.2); Eosinophils # 1.3 K/mcL (0.0-0.6); Eosinophils % 16.3 %; Hematocrit 27.3 % (35.3-44.9); Immature Granulocytes % 0.6 % (0-4); Immature Platelets 8.3 % (1.1-6.1); Lymphocytes # 1.3 K/mcL (0.6-4.6); Lymphocytes % 16.1 %; Mean Corpuscular HGB Conc 29.3 g/dL (31.6-35.5); Mean Corpuscular Hemoglobin 32.8 pg (28.0-33.3); Mean Corpuscular Volume 111.9 fL (83.0-100.0); Mean Platelet Volume 11.5 fL (9.4-12.4); Monocytes # 0.7 K/mcL (0.0-1.3); Monocytes % 8.9 %; Red Blood Count 2.44 M/mcL (3.82-4.97); Red Cell Distribution Width 15.1 % (11.5-14.5); Segmented Neutrophils % 57.3 %; White Blood Count 7.8 K/mcL (4.3-11.1)
[2021-08-10 06:48] LABS: Neutrophils # 4.5 K/mcL (1.6-8.9); Platelet Count 47 K/mcL (140-400)
[2021-08-10 07:04] LABS: Calcium 8.9 mg/dL (8.6-10.3); Magnesium 1.9 mg/dL (1.6-2.6); Phosphorous 3.8 mg/dL (2.7-4.5); Potassium 4.6 mEq/L (3.5-5.1)
[2021-08-10 07:27] LABS: Anisocytosis 1+ (Not Present); Macrocytosis Present (Not Present); Platelet Estimate Decreased (Normal)
[2021-08-10] MEDS: Insulin LISPRO 300 UNITS/3 ML VIAL SUBQ SCH ×3 (08:54→15:22)
[2021-08-10] MEDS: Aspirin 81 MG TAB.CHEW PO SCH (09:13)
[2021-08-10] MEDS: calcitrioL 0.25 MCG CAPSULE PO SCH (09:13)
[2021-08-10] MEDS: carvediloL 6.25 MG TABLET PO SCH ×2 (09:13→15:22)
[2021-08-10] MEDS: allopurinoL 100 MG TABLET PO SCH (09:13)
[2021-08-10] MEDS: *HR* OxyCODONE/APAP 5/325 TABLET PO PRN ×2 (09:22→20:19)
[2021-08-10] MEDS: Nystatin POWDER 30 GM BOTTLE TP SCH (09:25)
[2021-08-10] MEDS: polyethylene glycoL 3350 17 GM POWD.PACK PO SCH (13:37)
[2021-08-10] MEDS: Famotidine 20 MG TABLET PO SCH (20:10)
[2021-08-10] MEDS: Latanoprost 2.5 ML BOTTLE BOTH EYES SCH (23:22)
[2021-08-11 05:16] LABS: Hemoglobin 7.9 g/dL (11.5-15.4); Immature Platelets 7.4 % (1.1-6.1); Mean Corpuscular HGB Conc 29.3 g/dL (31.6-35.5); Mean Corpuscular Hemoglobin 33.1 pg (28.0-33.3); Mean Platelet Volume 11.8 fL (9.4-12.4); Red Blood Count 2.39 M/mcL (3.82-4.97)
[2021-08-11 05:24] LABS: Platelet Count 54 K/mcL (140-400)
[2021-08-11 05:31] LABS: Potassium 4.7 mEq/L (3.5-5.1)
[2021-08-11 05:56] LABS: Eosinophils # 1.3 K/mcL (0.0-0.6); Lymphocytes # 2.1 K/mcL (0.6-4.6); Monocytes # 0.6 K/mcL (0.0-1.3); Neutrophils # 3.1 K/mcL (1.6-8.9)
[2021-08-11 05:57] LABS: Macrocytosis Present (Not Present); Platelet Estimate Decreased (Normal)
[2021-08-11 05:58] LABS: Hypochromasia Present (Not Present)
[2021-08-11] MEDS: Insulin LISPRO 300 UNITS/3 ML VIAL SUBQ SCH ×3 (07:20→16:18)
[2021-08-11] MEDS: calcitrioL 0.25 MCG CAPSULE PO SCH (08:58)
[2021-08-11] MEDS: Aspirin 81 MG TAB.CHEW PO SCH (08:58)
[2021-08-11] MEDS: hydrALAZINE 25 MG TABLET PO SCH ×2 (08:58→16:22)
[2021-08-11] MEDS: carvediloL 6.25 MG TABLET PO SCH ×2 (08:58→16:22)
[2021-08-11] MEDS: Nystatin POWDER 30 GM BOTTLE TP SCH (08:58)
[2021-08-11] MEDS: polyethylene glycoL 3350 17 GM POWD.PACK PO SCH (08:58)
[2021-08-11] MEDS: allopurinoL 100 MG TABLET PO SCH (08:58)
[2021-08-11] MEDS: *HR* OxyCODONE/APAP 5/325 TABLET PO PRN ×2 (09:02→22:04)
[2021-08-11] MEDS: Famotidine 20 MG TABLET PO SCH (22:04)
[2021-08-11] MEDS: Latanoprost 2.5 ML BOTTLE BOTH EYES SCH (22:08)
[2021-08-12] MEDS: hydrALAZINE 25 MG TABLET PO SCH ×3 (00:41→16:55)
[2021-08-12 05:45] LABS: Hemoglobin 8.2 g/dL (11.5-15.4); Mean Platelet Volume 11.5 fL (9.4-12.4); Red Cell Distribution Width 14.9 % (11.5-14.5)
[2021-08-12 05:47] LABS: Hematocrit 28.2 % (35.3-44.9); Immature Platelets 7.2 % (1.1-6.1); Mean Corpuscular HGB Conc 29.1 g/dL (31.6-35.5); Mean Corpuscular Hemoglobin 32.4 pg (28.0-33.3); Mean Corpuscular Volume 111.5 fL (83.0-100.0); Red Blood Count 2.53 M/mcL (3.82-4.97); White Blood Count 6.6 K/mcL (4.3-11.1)
[2021-08-12 05:48] LABS: Platelet Count 72 K/mcL (140-400)
[2021-08-12 06:05] LABS: Calcium 9.3 mg/dL (8.6-10.3); Phosphorous 4.4 mg/dL (2.7-4.5); Potassium 4.9 mEq/L (3.5-5.1)
[2021-08-12 06:27] LABS: Eosinophils # 1.5 K/mcL (0.0-0.6); Lymphocytes # 1.6 K/mcL (0.6-4.6); Monocytes # 0.5 K/mcL (0.0-1.3); Platelet Estimate Decreased (Normal)
[2021-08-12 06:28] LABS: Macrocytosis Present (Not Present)
[2021-08-12] MEDS ORDERED: 0.9 % Sodium Chloride 250 ML IVC PRN (07:30)
[2021-08-12] MEDS: carvediloL 6.25 MG TABLET PO SCH ×2 (08:32→16:55)
[2021-08-12] MEDS: allopurinoL 100 MG TABLET PO SCH (08:32)
[2021-08-12] MEDS: *HR* OxyCODONE/APAP 5/325 TABLET PO PRN (08:32)
[2021-08-12] MEDS: Aspirin 81 MG TAB.CHEW PO SCH (08:32)
[2021-08-12] MEDS: Insulin LISPRO 300 UNITS/3 ML VIAL SUBQ SCH ×3 (08:33→16:55)
[2021-08-12] MEDS: Nystatin POWDER 30 GM BOTTLE TP SCH (08:33)
[2021-08-12] MEDS: calcitrioL 0.25 MCG CAPSULE PO SCH (08:33)
[2021-08-12] MEDS: polyethylene glycoL 3350 17 GM POWD.PACK PO SCH (08:33)
[2021-08-12] MEDS: Ondansetron 4 MG/2 ML VIAL IVP PRN (16:10)
[2021-08-12] MEDS: Ethyl Chloride Spray Bottle (104 SPRAY/BOTTLE) TP PRN (16:11)
[2021-08-12] MEDS ORDERED: Metoclopramide 10 MG/2 ML VIAL IVP ONE (17:36)
[2021-08-12] MEDS: Famotidine 20 MG TABLET PO SCH (20:59)
[2021-08-12] MEDS: Latanoprost 2.5 ML BOTTLE BOTH EYES SCH (21:00)
[2021-08-13] MEDS: hydrALAZINE 25 MG TABLET PO SCH ×4 (00:02→23:43)
[2021-08-13] MEDS: Insulin LISPRO 300 UNITS/3 ML VIAL SUBQ SCH ×3 (08:14→16:29)
[2021-08-13] MEDS: polyethylene glycoL 3350 17 GM POWD.PACK PO SCH (08:39)
[2021-08-13] MEDS: calcitrioL 0.25 MCG CAPSULE PO SCH (08:40)
[2021-08-13] MEDS: allopurinoL 100 MG TABLET PO SCH (08:40)
[2021-08-13] MEDS: Aspirin 81 MG TAB.CHEW PO SCH (08:40)
[2021-08-13] MEDS: carvediloL 6.25 MG TABLET PO SCH ×2 (08:41→16:37)
[2021-08-13] MEDS: *HR* OxyCODONE/APAP 5/325 TABLET PO PRN (09:30)
[2021-08-13] MEDS: Nystatin POWDER 30 GM BOTTLE TP SCH (09:30)
[2021-08-13 13:29] LABS: Basophils # 0.1 K/mcL (0.0-0.2); Basophils % 0.9 %; Eosinophils # 1.2 K/mcL (0.0-0.6); Eosinophils % 11.8 %; Hematocrit 30.2 % (35.3-44.9); Hemoglobin 9.2 g/dL (11.5-15.4); Immature Granulocytes % 0.9 % (0-4); Immature Platelets 7.2 % (1.1-6.1); Lymphocytes # 1.2 K/mcL (0.6-4.6); Lymphocytes % 12.2 %; Mean Corpuscular HGB Conc 30.5 g/dL (31.6-35.5); Mean Corpuscular Hemoglobin 32.6 pg (28.0-33.3); Mean Corpuscular Volume 107.1 fL (83.0-100.0); Mean Platelet Volume 12.4 fL (9.4-12.4); Monocytes % 10.2 %; Neutrophils # 6.3 K/mcL (1.6-8.9); Nucleated Red Blood Cells 0.2 /100 WBC (0); Red Blood Count 2.82 M/mcL (3.82-4.97); Red Cell Distribution Width 14.6 % (11.5-14.5); White Blood Count 9.8 K/mcL (4.3-11.1)
[2021-08-13 13:58] LABS: Platelet Count 65 K/mcL (140-400)
[2021-08-13 15:26] LABS: Calcium 9.4 mg/dL (8.6-10.3); Potassium 5.1 mEq/L (3.5-5.1)
[2021-08-13] MEDS: Famotidine 20 MG TABLET PO SCH (21:09)
[2021-08-13] MEDS: Latanoprost 2.5 ML BOTTLE BOTH EYES SCH (21:10)
[2021-08-14 04:10] LABS: Basophils % 0.9 %
[2021-08-14 04:12] LABS: Basophils # 0.1 K/mcL (0.0-0.2); Eosinophils # 1.3 K/mcL (0.0-0.6); Eosinophils % 19.4 %; Hematocrit 27.1 % (35.3-44.9); Immature Granulocytes % 0.9 % (0-4); Immature Platelets 7.2 % (1.1-6.1); Lymphocytes # 1.1 K/mcL (0.6-4.6); Lymphocytes % 16.7 %; Mean Corpuscular HGB Conc 29.5 g/dL (31.6-35.5); Mean Corpuscular Hemoglobin 32.7 pg (28.0-33.3); Mean Corpuscular Volume 110.6 fL (83.0-100.0); Mean Platelet Volume 11.3 fL (9.4-12.4); Monocytes # 0.8 K/mcL (0.0-1.3); Monocytes % 11.8 %; Neutrophils # 3.3 K/mcL (1.6-8.9); Red Blood Count 2.45 M/mcL (3.82-4.97); Red Cell Distribution Width 14.7 % (11.5-14.5); Segmented Neutrophils % 50.3 %; White Blood Count 6.6 K/mcL (4.3-11.1)
[2021-08-14 04:27] LABS: Platelet Count 71 K/mcL (140-400); Platelet Estimate Decreased (Normal)
[2021-08-14 04:29] LABS: Calcium 9.4 mg/dL (8.6-10.3); Potassium 4.7 mEq/L (3.5-5.1)
[2021-08-14] MEDS ORDERED: 0.9 % Sodium Chloride 250 ML IVC PRN (07:45)
[2021-08-14] MEDS: hydrALAZINE 25 MG TABLET PO SCH ×3 (07:55→15:49)
[2021-08-14] MEDS: Insulin LISPRO 300 UNITS/3 ML VIAL SUBQ SCH ×3 (07:55→15:10)
[2021-08-14] MEDS: Aspirin 81 MG TAB.CHEW PO SCH (08:09)
[2021-08-14] MEDS: allopurinoL 100 MG TABLET PO SCH (08:09)
[2021-08-14] MEDS: polyethylene glycoL 3350 17 GM POWD.PACK PO SCH (08:09)
[2021-08-14] MEDS: calcitrioL 0.25 MCG CAPSULE PO SCH (08:09)
[2021-08-14] MEDS: carvediloL 6.25 MG TABLET PO SCH ×2 (08:09→15:49)
[2021-08-14] MEDS: Nystatin POWDER 30 GM BOTTLE TP SCH (08:11)
[2021-08-14] MEDS: Ondansetron 4 MG/2 ML VIAL IVP PRN ×2 (08:57→15:48)
[2021-08-14] MEDS: *HR* OxyCODONE/APAP 5/325 TABLET PO PRN ×2 (11:05→21:24)
[2021-08-14 12:03] LABS: Adenovirus Not Detected (Not Detect); Bordetella Pertussis Not Detected (Not Detect); Chlamydophila pneumoniae Not Detected (Not Detect); Coronavirus 229E Not Detected (Not Detect); Coronavirus HKU1 Not Detected (Not Detect); Coronavirus NL63 Not Detected (Not Detect); Coronavirus OC43 Not Detected (Not Detect); Human Metapneumovirus Not Detected (Not Detect); Human Rhinovirus/Enterovirus Not Detected (Not Detect); Influenza A Subtype 2009 H1 Not Detected (Not Detect); Influenza B Not Detected (Not Detect); Mycoplasma pneumoniae Not Detected (Not Detect); Parainfluenza Virus 1 Not Detected (Not Detect); Parainfluenza Virus 2 Not Detected (Not Detect); Parainfluenza Virus 3 Not Detected (Not Detect); Parainfluenza Virus 4 Not Detected (Not Detect); Respiratory Syncytial Virus Not Detected (Not Detect)
[2021-08-14 12:05] LABS: SARS-CoV-2 DETECTED (Not Detect)
[2021-08-14] MEDS: Furosemide 40 MG TABLET PO SCH (15:49)
[2021-08-14] MEDS: Acetaminophen 325 MG TABLET PO PRN (18:48)
[2021-08-14] MEDS: Melatonin 3 MG TABLET PO PRN (21:21)
[2021-08-14] MEDS: *HR* Heparin 5,000 UNIT/ML VIAL SQ SCH (21:21)
[2021-08-14] MEDS: Famotidine 20 MG TABLET PO SCH (21:22)
[2021-08-14] MEDS: Latanoprost 2.5 ML BOTTLE BOTH EYES SCH (21:24)
[2021-08-15] MEDS: hydrALAZINE 25 MG TABLET PO SCH ×4 (01:27→23:39)
[2021-08-15 05:34] LABS: Basophils % 0.9 %; Hemoglobin 8.1 g/dL (11.5-15.4); Mean Platelet Volume 11.9 fL (9.4-12.4); Red Cell Distribution Width 14.6 % (11.5-14.5)
[2021-08-15 05:36] LABS: Basophils # 0.1 K/mcL (0.0-0.2); Eosinophils # 0.9 K/mcL (0.0-0.6); Eosinophils % 13.6 %; Hematocrit 27.2 % (35.3-44.9); Immature Granulocytes % 1.9 % (0-4); Immature Platelets 8.3 % (1.1-6.1); Lymphocytes # 1.3 K/mcL (0.6-4.6); Lymphocytes % 20.6 %; Mean Corpuscular HGB Conc 29.8 g/dL (31.6-35.5); Mean Corpuscular Hemoglobin 33.6 pg (28.0-33.3); Mean Corpuscular Volume 112.9 fL (83.0-100.0); Monocytes # 1.1 K/mcL (0.0-1.3); Monocytes % 17.2 %; Neutrophils # 2.9 K/mcL (1.6-8.9); Red Blood Count 2.41 M/mcL (3.82-4.97); Segmented Neutrophils % 45.8 %; White Blood Count 6.4 K/mcL (4.3-11.1)
[2021-08-15 05:47] LABS: Calcium 8.9 mg/dL (8.6-10.3); Phosphorous 3.8 mg/dL (2.7-4.5); Potassium 4.5 mEq/L (3.5-5.1)
[2021-08-15 05:52] LABS: Platelet Count 61 K/mcL (140-400)
[2021-08-15 05:53] LABS: Anisocytosis 1+ (Not Present); Macrocytosis Present (Not Present); Platelet Estimate Decreased (Normal)
[2021-08-15] MEDS: *HR* Heparin 5,000 UNIT/ML VIAL SQ SCH ×3 (05:56→20:48)
[2021-08-15] MEDS: Insulin LISPRO 300 UNITS/3 ML VIAL SUBQ SCH ×3 (08:56→17:04)
[2021-08-15] MEDS: Furosemide 40 MG TABLET PO SCH ×2 (08:58→17:03)
[2021-08-15] MEDS: allopurinoL 100 MG TABLET PO SCH (08:58)
[2021-08-15] MEDS: carvediloL 6.25 MG TABLET PO SCH ×2 (08:58→17:03)
[2021-08-15] MEDS: Aspirin 81 MG TAB.CHEW PO SCH (08:59)
[2021-08-15] MEDS: polyethylene glycoL 3350 17 GM POWD.PACK PO SCH (08:59)
[2021-08-15] MEDS: calcitrioL 0.25 MCG CAPSULE PO SCH (08:59)
[2021-08-15] MEDS: Nystatin POWDER 30 GM BOTTLE TP SCH (08:59)
[2021-08-15] MEDS: *HR* OxyCODONE/APAP 5/325 TABLET PO PRN (17:03)
[2021-08-15] MEDS: Famotidine 20 MG TABLET PO SCH (20:46)
[2021-08-15] MEDS: Latanoprost 2.5 ML BOTTLE BOTH EYES SCH (20:46)
[2021-08-15] MEDS: Melatonin 3 MG TABLET PO PRN (20:47)
[2021-08-16] MEDS: *HR* Heparin 5,000 UNIT/ML VIAL SQ SCH ×3 (06:09→20:19)
[2021-08-16 06:30] LABS: Immature Granulocytes % 1.8 % (0-4); Red Cell Distribution Width 14.5 % (11.5-14.5)
[2021-08-16 06:32] LABS: Basophils # 0.1 K/mcL (0.0-0.2); Basophils % 1.6 %; Eosinophils # 1.2 K/mcL (0.0-0.6); Eosinophils % 21.4 %; Hematocrit 29.7 % (35.3-44.9); Hemoglobin 8.6 g/dL (11.5-15.4); Immature Platelets 7.9 % (1.1-6.1); Lymphocytes # 1.5 K/mcL (0.6-4.6); Lymphocytes % 26.7 %; Mean Corpuscular Volume 113.8 fL (83.0-100.0); Mean Platelet Volume 11.2 fL (9.4-12.4); Monocytes # 1.1 K/mcL (0.0-1.3); Neutrophils # 1.7 K/mcL (1.6-8.9); Red Blood Count 2.61 M/mcL (3.82-4.97); Segmented Neutrophils % 29.5 %; White Blood Count 5.6 K/mcL (4.3-11.1)
[2021-08-16 06:48] LABS: Platelet Count 72 K/mcL (140-400)
[2021-08-16 06:58] LABS: Calcium 9.4 mg/dL (8.6-10.3); Potassium 4.6 mEq/L (3.5-5.1)
[2021-08-16 07:01] LABS: Platelet Estimate Slight Decrease (Normal); Poikilocytosis 1+ (Not Present); Target Cells 1+ (Not Present)
[2021-08-16] MEDS ORDERED: 0.9 % Sodium Chloride 250 ML IVC PRN (07:25)
[2021-08-16] MEDS ORDERED: 0.9 % Sodium Chloride 2,000 ML PRIME SCH (07:30)
[2021-08-16] MEDS: Insulin LISPRO 300 UNITS/3 ML VIAL SUBQ SCH ×3 (08:26→20:18)
[2021-08-16] MEDS: Aspirin 81 MG TAB.CHEW PO SCH (08:48)
[2021-08-16] MEDS: *HR* OxyCODONE/APAP 5/325 TABLET PO PRN (08:49)
[2021-08-16] MEDS: allopurinoL 100 MG TABLET PO SCH (08:49)
[2021-08-16] MEDS: carvediloL 6.25 MG TABLET PO SCH ×2 (08:51→17:31)
[2021-08-16] MEDS: calcitrioL 0.25 MCG CAPSULE PO SCH (08:51)
[2021-08-16] MEDS: hydrALAZINE 25 MG TABLET PO SCH ×3 (08:51→23:57)
[2021-08-16] MEDS: Furosemide 40 MG TABLET PO SCH ×2 (08:51→17:31)
[2021-08-16] MEDS: Nystatin POWDER 30 GM BOTTLE TP SCH (08:55)
[2021-08-16] MEDS: polyethylene glycoL 3350 17 GM POWD.PACK PO SCH (08:55)
[2021-08-16] MEDS: Ondansetron 4 MG/2 ML VIAL IVP PRN (17:34)
[2021-08-16] MEDS ORDERED: Ondansetron 4 MG/2 ML VIAL IVP STA (19:51)
[2021-08-16] MEDS: Famotidine 20 MG TABLET PO SCH (20:21)
[2021-08-16] MEDS: Latanoprost 2.5 ML BOTTLE BOTH EYES SCH (22:43)
[2021-08-17] MEDS: *HR* Heparin 5,000 UNIT/ML VIAL SQ SCH ×3 (05:33→20:30)
[2021-08-17 05:57] LABS: Basophils # 0.1 K/mcL (0.0-0.2); Basophils % 1.4 %; Eosinophils # 0.5 K/mcL (0.0-0.6); Eosinophils % 8.3 %; Hematocrit 27.4 % (35.3-44.9); Hemoglobin 8.1 g/dL (11.5-15.4); Immature Granulocytes % 1.7 % (0-4); Immature Platelets 6.7 % (1.1-6.1); Lymphocytes # 1.3 K/mcL (0.6-4.6); Mean Corpuscular HGB Conc 29.6 g/dL (31.6-35.5); Mean Corpuscular Hemoglobin 32.8 pg (28.0-33.3); Mean Corpuscular Volume 110.9 fL (83.0-100.0); Mean Platelet Volume 11.2 fL (9.4-12.4); Monocytes # 0.7 K/mcL (0.0-1.3); Monocytes % 11.6 %; Neutrophils # 3.2 K/mcL (1.6-8.9); Red Blood Count 2.47 M/mcL (3.82-4.97); Red Cell Distribution Width 14.2 % (11.5-14.5); White Blood Count 5.8 K/mcL (4.3-11.1)
[2021-08-17 06:11] LABS: Platelet Count 43 K/mcL (140-400)
[2021-08-17 06:13] LABS: Calcium 8.6 mg/dL (8.6-10.3); Potassium 4.6 mEq/L (3.5-5.1)
[2021-08-17 06:52] LABS: Platelet Estimate Decreased (Normal)
[2021-08-17] MEDS: Furosemide 40 MG TABLET PO SCH ×2 (09:18→16:07)
[2021-08-17] MEDS: hydrALAZINE 25 MG TABLET PO SCH ×3 (09:18→23:25)
[2021-08-17] MEDS: Aspirin 81 MG TAB.CHEW PO SCH (09:18)
[2021-08-17] MEDS: carvediloL 6.25 MG TABLET PO SCH ×2 (09:18→16:07)
[2021-08-17] MEDS: *HR* OxyCODONE/APAP 5/325 TABLET PO PRN (09:19)
[2021-08-17] MEDS: polyethylene glycoL 3350 17 GM POWD.PACK PO SCH (09:19)
[2021-08-17] MEDS: calcitrioL 0.25 MCG CAPSULE PO SCH (09:19)
[2021-08-17] MEDS: allopurinoL 100 MG TABLET PO SCH (09:19)
[2021-08-17] MEDS: Insulin LISPRO 300 UNITS/3 ML VIAL SUBQ SCH ×3 (09:20→16:27)
[2021-08-17] MEDS: Ondansetron 4 MG/2 ML VIAL IVP PRN (09:35)
[2021-08-17] MEDS: Nystatin POWDER 30 GM BOTTLE TP SCH (13:16)
[2021-08-17] MEDS: Famotidine 20 MG TABLET PO SCH (20:31)
[2021-08-17] MEDS: Latanoprost 2.5 ML BOTTLE BOTH EYES SCH (20:31)
[2021-08-18] MEDS: *HR* Heparin 5,000 UNIT/ML VIAL SQ SCH ×2 (05:51→15:09)
[2021-08-18 06:10] LABS: Red Cell Distribution Width 14.5 % (11.5-14.5)
[2021-08-18 06:12] LABS: Basophils # 0.1 K/mcL (0.0-0.2); Basophils % 1.7 %; Eosinophils % 19.9 %; Hematocrit 27.9 % (35.3-44.9); Immature Granulocytes % 1.9 % (0-4); Immature Platelets 5.4 % (1.1-6.1); Lymphocytes # 1.8 K/mcL (0.6-4.6); Lymphocytes % 36.4 %; Mean Corpuscular HGB Conc 28.7 g/dL (31.6-35.5); Mean Corpuscular Volume 111.6 fL (83.0-100.0); Mean Platelet Volume 11.7 fL (9.4-12.4); Monocytes # 0.7 K/mcL (0.0-1.3); Monocytes % 13.9 %; Neutrophils # 1.3 K/mcL (1.6-8.9); Segmented Neutrophils % 26.2 %; White Blood Count 4.8 K/mcL (4.3-11.1)
[2021-08-18 06:14] LABS: Platelet Count 53 K/mcL (140-400)
[2021-08-18 06:17] LABS: Platelet Estimate Decreased (Normal)
[2021-08-18 06:26] LABS: Potassium 4.4 mEq/L (3.5-5.1)
[2021-08-18] MEDS: hydrALAZINE 25 MG TABLET PO SCH ×2 (09:03→15:10)
[2021-08-18] MEDS: allopurinoL 100 MG TABLET PO SCH (09:03)
[2021-08-18] MEDS: Furosemide 40 MG TABLET PO SCH ×2 (09:03→19:55)
[2021-08-18] MEDS: carvediloL 6.25 MG TABLET PO SCH ×2 (09:04→17:57)
[2021-08-18] MEDS: Aspirin 81 MG TAB.CHEW PO SCH (09:04)
[2021-08-18] MEDS: polyethylene glycoL 3350 17 GM POWD.PACK PO SCH (09:04)
[2021-08-18] MEDS: Nystatin POWDER 30 GM BOTTLE TP SCH (09:04)
[2021-08-18] MEDS: calcitrioL 0.25 MCG CAPSULE PO SCH (09:04)
[2021-08-18] MEDS: *HR* OxyCODONE/APAP 5/325 TABLET PO PRN (09:08)
[2021-08-18] MEDS: Insulin LISPRO 300 UNITS/3 ML VIAL SUBQ SCH ×3 (09:09→17:46)
[2021-08-18] MEDS: Famotidine 20 MG TABLET PO SCH (19:43)
[2021-08-18] MEDS: Latanoprost 2.5 ML BOTTLE BOTH EYES SCH (19:44)
[2021-08-19] MEDS: *HR* Heparin 5,000 UNIT/ML VIAL SQ SCH ×4 (04:17→21:11)
[2021-08-19 05:39] LABS: Basophils % 1.3 %; Hematocrit 27.3 % (35.3-44.9); Hemoglobin 8.1 g/dL (11.5-15.4); Immature Granulocytes % 2.5 % (0-4); Mean Corpuscular HGB Conc 29.7 g/dL (31.6-35.5)
[2021-08-19 05:41] LABS: Basophils # 0.1 K/mcL (0.0-0.2); Eosinophils # 1.3 K/mcL (0.0-0.6); Eosinophils % 22.2 %; Immature Platelets 5.8 % (1.1-6.1); Lymphocytes # 1.8 K/mcL (0.6-4.6); Lymphocytes % 29.7 %; Mean Corpuscular Hemoglobin 32.7 pg (28.0-33.3); Mean Corpuscular Volume 110.1 fL (83.0-100.0); Mean Platelet Volume 11.2 fL (9.4-12.4); Monocytes # 0.8 K/mcL (0.0-1.3); Monocytes % 13.2 %; Neutrophils # 1.9 K/mcL (1.6-8.9); Nucleated Red Blood Cells 0.5 /100 WBC (0); Red Blood Count 2.48 M/mcL (3.82-4.97); Red Cell Distribution Width 14.5 % (11.5-14.5); Segmented Neutrophils % 31.1 %
[2021-08-19 05:47] LABS: Platelet Count 64 K/mcL (140-400)
[2021-08-19 05:59] LABS: Calcium 9.3 mg/dL (8.6-10.3); Potassium 4.3 mEq/L (3.5-5.1)
[2021-08-19 06:01] LABS: Platelet Estimate Decreased (Normal)
[2021-08-19 06:02] LABS: Hypochromasia Present (Not Present)
[2021-08-19 06:03] LABS: Anisocytosis 1+ (Not Present)
[2021-08-19] MEDS: carvediloL 6.25 MG TABLET PO SCH ×2 (09:26→17:25)
[2021-08-19] MEDS: Furosemide 40 MG TABLET PO SCH ×2 (09:26→17:25)
[2021-08-19] MEDS: allopurinoL 100 MG TABLET PO SCH (09:26)
[2021-08-19] MEDS: Aspirin 81 MG TAB.CHEW PO SCH (09:27)
[2021-08-19] MEDS: calcitrioL 0.25 MCG CAPSULE PO SCH (09:27)
[2021-08-19] MEDS: hydrALAZINE 25 MG TABLET PO SCH ×3 (09:27→15:09)
[2021-08-19] MEDS: Insulin LISPRO 300 UNITS/3 ML VIAL SUBQ SCH ×3 (09:28→17:17)
[2021-08-19] MEDS: polyethylene glycoL 3350 17 GM POWD.PACK PO SCH (09:30)
[2021-08-19] MEDS: Nystatin POWDER 30 GM BOTTLE TP SCH (09:30)
[2021-08-19] MEDS: *HR* OxyCODONE/APAP 5/325 TABLET PO PRN ×2 (09:38→21:12)
[2021-08-19] MEDS: Ondansetron 4 MG/2 ML VIAL IVP PRN (09:45)
[2021-08-19] MEDS: Acetaminophen 325 MG TABLET PO PRN (17:24)
[2021-08-19] MEDS: Melatonin 3 MG TABLET PO PRN (21:11)
[2021-08-19] MEDS: Famotidine 20 MG TABLET PO SCH (21:11)
[2021-08-19] MEDS: Latanoprost 2.5 ML BOTTLE BOTH EYES SCH (21:11)
[2021-08-20] MEDS: hydrALAZINE 25 MG TABLET PO SCH ×3 (00:53→17:35)
[2021-08-20 05:26] LABS: Calcium 9.4 mg/dL (8.6-10.3)
[2021-08-20] MEDS: *HR* Heparin 5,000 UNIT/ML VIAL SQ SCH ×3 (05:55→21:06)
[2021-08-20] MEDS: Insulin LISPRO 300 UNITS/3 ML VIAL SUBQ SCH ×3 (07:37→17:12)
[2021-08-20] MEDS: Ondansetron 4 MG/2 ML VIAL IVP PRN (08:46)
[2021-08-20] MEDS: Aspirin 81 MG TAB.CHEW PO SCH (08:46)
[2021-08-20] MEDS: calcitrioL 0.25 MCG CAPSULE PO SCH (08:46)
[2021-08-20] MEDS: carvediloL 6.25 MG TABLET PO SCH ×2 (08:47→17:35)
[2021-08-20] MEDS: allopurinoL 100 MG TABLET PO SCH (08:47)
[2021-08-20] MEDS: polyethylene glycoL 3350 17 GM POWD.PACK PO SCH (08:48)
[2021-08-20] MEDS: Nystatin POWDER 30 GM BOTTLE TP SCH (08:48)
[2021-08-20] MEDS: Furosemide 40 MG TABLET PO SCH ×2 (08:48→17:35)
[2021-08-20] MEDS ORDERED: Metoclopramide 10 MG/2 ML VIAL IVP ONE (11:01)
[2021-08-20] MEDS: *HR* OxyCODONE/APAP 5/325 TABLET PO PRN (21:06)
[2021-08-20] MEDS: Latanoprost 2.5 ML BOTTLE BOTH EYES SCH (21:06)
[2021-08-20] MEDS: Melatonin 3 MG TABLET PO PRN (21:06)
[2021-08-20] MEDS: Famotidine 20 MG TABLET PO SCH (21:07)
[2021-08-20] MEDS ORDERED: 0.9 % Sodium Chloride 250 ML IVC PRN (21:18)
[2021-08-21] MEDS: hydrALAZINE 25 MG TABLET PO SCH ×4 (00:03→23:52)
[2021-08-21 05:14] LABS: Calcium 9.1 mg/dL (8.6-10.3); Potassium 4.7 mEq/L (3.5-5.1)
[2021-08-21] MEDS: *HR* Heparin 5,000 UNIT/ML VIAL SQ SCH ×3 (05:32→21:04)
[2021-08-21] MEDS: Insulin LISPRO 300 UNITS/3 ML VIAL SUBQ SCH ×3 (07:57→16:21)
[2021-08-21] MEDS: Furosemide 40 MG TABLET PO SCH ×2 (08:31→16:39)
[2021-08-21] MEDS: polyethylene glycoL 3350 17 GM POWD.PACK PO SCH (08:31)
[2021-08-21] MEDS: Aspirin 81 MG TAB.CHEW PO SCH (08:31)
[2021-08-21] MEDS: carvediloL 6.25 MG TABLET PO SCH ×2 (08:31→16:39)
[2021-08-21] MEDS: calcitrioL 0.25 MCG CAPSULE PO SCH (08:31)
[2021-08-21] MEDS: allopurinoL 100 MG TABLET PO SCH (08:31)
[2021-08-21] MEDS: Nystatin POWDER 30 GM BOTTLE TP SCH (08:33)
[2021-08-21] MEDS: *HR* OxyCODONE/APAP 5/325 TABLET PO PRN ×2 (08:39→20:54)
[2021-08-21] MEDS: Latanoprost 2.5 ML BOTTLE BOTH EYES SCH (20:54)
[2021-08-21] MEDS: Melatonin 3 MG TABLET PO PRN (20:54)
[2021-08-21] MEDS: Famotidine 20 MG TABLET PO SCH (20:54)
[2021-08-22] MEDS: *HR* Heparin 5,000 UNIT/ML VIAL SQ SCH ×3 (06:05→22:17)
[2021-08-22 06:09] LABS: Calcium 9.4 mg/dL (8.6-10.3); Potassium 4.3 mEq/L (3.5-5.1)
[2021-08-22] MEDS ORDERED: 0.9 % Sodium Chloride 250 ML IVC PRN (07:23)
[2021-08-22] MEDS: Insulin LISPRO 300 UNITS/3 ML VIAL SUBQ SCH ×3 (08:49→15:17)
[2021-08-22] MEDS: allopurinoL 100 MG TABLET PO SCH (09:00)
[2021-08-22] MEDS: Furosemide 40 MG TABLET PO SCH ×2 (09:00→15:18)
[2021-08-22] MEDS: hydrALAZINE 25 MG TABLET PO SCH ×2 (09:00→15:17)
[2021-08-22] MEDS: Aspirin 81 MG TAB.CHEW PO SCH (09:00)
[2021-08-22] MEDS: carvediloL 6.25 MG TABLET PO SCH ×2 (09:00→15:17)
[2021-08-22] MEDS: Nystatin POWDER 30 GM BOTTLE TP SCH (09:00)
[2021-08-22] MEDS: polyethylene glycoL 3350 17 GM POWD.PACK PO SCH (09:00)
[2021-08-22] MEDS: calcitrioL 0.25 MCG CAPSULE PO SCH (09:01)
[2021-08-22] MEDS: Ondansetron 4 MG/2 ML VIAL IVP PRN (09:56)
[2021-08-22] MEDS: *HR* OxyCODONE/APAP 5/325 TABLET PO PRN (15:24)
[2021-08-22] MEDS: Famotidine 20 MG TABLET PO SCH (22:17)
[2021-08-22] MEDS: Latanoprost 2.5 ML BOTTLE BOTH EYES SCH (22:17)
[2021-08-22] MEDS: Melatonin 3 MG TABLET PO PRN (22:17)
[2021-08-23] MEDS: hydrALAZINE 25 MG TABLET PO SCH ×3 (01:51→17:54)
[2021-08-23 05:47] LABS: Potassium 4.7 mEq/L (3.5-5.1)
[2021-08-23] MEDS: *HR* Heparin 5,000 UNIT/ML VIAL SQ SCH ×3 (06:59→20:07)
[2021-08-23] MEDS: Insulin LISPRO 300 UNITS/3 ML VIAL SUBQ SCH ×3 (09:10→17:54)
[2021-08-23] MEDS: allopurinoL 100 MG TABLET PO SCH (09:53)
[2021-08-23] MEDS: Aspirin 81 MG TAB.CHEW PO SCH (09:53)
[2021-08-23] MEDS: calcitrioL 0.25 MCG CAPSULE PO SCH (09:54)
[2021-08-23] MEDS: polyethylene glycoL 3350 17 GM POWD.PACK PO SCH (09:54)
[2021-08-23] MEDS: Nystatin POWDER 30 GM BOTTLE TP SCH (09:55)
[2021-08-23] MEDS: carvediloL 6.25 MG TABLET PO SCH ×2 (10:01→17:54)
[2021-08-23] MEDS: *HR* OxyCODONE/APAP 5/325 TABLET PO PRN (10:02)
[2021-08-23] MEDS: Furosemide 40 MG TABLET PO SCH ×2 (10:02→17:54)
[2021-08-23] MEDS: Famotidine 20 MG TABLET PO SCH (20:06)
[2021-08-23] MEDS: Latanoprost 2.5 ML BOTTLE BOTH EYES SCH (20:07)
[2021-08-24] MEDS: hydrALAZINE 25 MG TABLET PO SCH ×4 (00:08→23:40)
[2021-08-24 03:27] LABS: Calcium 9.5 mg/dL (8.6-10.3); Potassium 4.3 mEq/L (3.5-5.1)
[2021-08-24] MEDS: *HR* Heparin 5,000 UNIT/ML VIAL SQ SCH ×3 (05:59→20:35)
[2021-08-24] MEDS ORDERED: 0.9 % Sodium Chloride 250 ML IVC PRN (08:25)
[2021-08-24] MEDS: Ondansetron 4 MG/2 ML VIAL IVP PRN (08:53)
[2021-08-24] MEDS: Aspirin 81 MG TAB.CHEW PO SCH (08:53)
[2021-08-24] MEDS: allopurinoL 100 MG TABLET PO SCH (08:53)
[2021-08-24] MEDS: calcitrioL 0.25 MCG CAPSULE PO SCH (08:53)
[2021-08-24] MEDS: *HR* OxyCODONE/APAP 5/325 TABLET PO PRN (10:10)
[2021-08-24] MEDS: Insulin LISPRO 300 UNITS/3 ML VIAL SUBQ SCH ×3 (10:11→16:21)
[2021-08-24] MEDS: polyethylene glycoL 3350 17 GM POWD.PACK PO SCH (10:12)
[2021-08-24] MEDS: carvediloL 6.25 MG TABLET PO SCH ×2 (10:12→16:20)
[2021-08-24] MEDS: Nystatin POWDER 30 GM BOTTLE TP SCH (10:12)
[2021-08-24] MEDS: Furosemide 40 MG TABLET PO SCH ×2 (10:12→16:21)
[2021-08-24] MEDS ORDERED: Ondansetron 4 MG/2 ML VIAL IVP ONE (13:02)
[2021-08-24] MEDS: Acetaminophen 325 MG TABLET PO PRN (16:29)
[2021-08-24] MEDS: Latanoprost 2.5 ML BOTTLE BOTH EYES SCH (20:35)
[2021-08-24] MEDS: Famotidine 20 MG TABLET PO SCH (20:35)
[2021-08-25] MEDS: *HR* Heparin 5,000 UNIT/ML VIAL SQ SCH ×3 (05:07→20:36)
[2021-08-25 06:58] LABS: Basophils % 1.2 %; Hemoglobin 7.6 g/dL (11.5-15.4); Monocytes % 9.8 %; Nucleated Red Blood Cells 0.4 /100 WBC (0); Red Cell Distribution Width 15.1 % (11.5-14.5)
[2021-08-25 07:01] LABS: Basophils # 0.1 K/mcL (0.0-0.2); Eosinophils % 12.4 %; Hematocrit 25.7 % (35.3-44.9); Immature Granulocytes % 1.3 % (0-4); Immature Platelets 6.6 % (1.1-6.1); Lymphocytes # 1.8 K/mcL (0.6-4.6); Lymphocytes % 23.3 %; Mean Corpuscular HGB Conc 29.6 g/dL (31.6-35.5); Mean Corpuscular Hemoglobin 32.9 pg (28.0-33.3); Mean Corpuscular Volume 111.3 fL (83.0-100.0); Mean Platelet Volume 11.3 fL (9.4-12.4); Monocytes # 0.8 K/mcL (0.0-1.3); Red Blood Count 2.31 M/mcL (3.82-4.97); White Blood Count 7.7 K/mcL (4.3-11.1)
[2021-08-25 07:03] LABS: Platelet Count 66 K/mcL (140-400)
[2021-08-25 07:22] LABS: Potassium 4.4 mEq/L (3.5-5.1)
[2021-08-25 07:44] LABS: Hypochromasia Present (Not Present); Macrocytosis Present (Not Present); Platelet Estimate Decreased (Normal)
[2021-08-25] MEDS: hydrALAZINE 25 MG TABLET PO SCH ×3 (10:19→23:43)
[2021-08-25] MEDS: carvediloL 6.25 MG TABLET PO SCH ×2 (10:19→19:19)
[2021-08-25] MEDS: *HR* OxyCODONE/APAP 5/325 TABLET PO PRN (10:19)
[2021-08-25] MEDS: Furosemide 40 MG TABLET PO SCH ×2 (10:19→19:19)
[2021-08-25] MEDS: calcitrioL 0.25 MCG CAPSULE PO SCH (10:20)
[2021-08-25] MEDS: Aspirin 81 MG TAB.CHEW PO SCH (10:20)
[2021-08-25] MEDS: allopurinoL 100 MG TABLET PO SCH (10:20)
[2021-08-25] MEDS: polyethylene glycoL 3350 17 GM POWD.PACK PO SCH (10:21)
[2021-08-25] MEDS: Nystatin POWDER 30 GM BOTTLE TP SCH (10:21)
[2021-08-25] MEDS: Insulin LISPRO 300 UNITS/3 ML VIAL SUBQ SCH ×3 (10:23→19:20)
[2021-08-25] MEDS: Famotidine 20 MG TABLET PO SCH (20:35)
[2021-08-25] MEDS: Latanoprost 2.5 ML BOTTLE BOTH EYES SCH (20:37)
[2021-08-26 02:20] LABS: Basophils # 0.1 K/mcL (0.0-0.2); Basophils % 1.4 %; Eosinophils # 1.1 K/mcL (0.0-0.6); Eosinophils % 16.4 %; Hematocrit 25.5 % (35.3-44.9); Hemoglobin 7.6 g/dL (11.5-15.4); Immature Granulocytes % 1.9 % (0-4); Immature Platelets 6.6 % (1.1-6.1); Lymphocytes # 1.7 K/mcL (0.6-4.6); Lymphocytes % 24.8 %; Mean Corpuscular HGB Conc 29.8 g/dL (31.6-35.5); Mean Corpuscular Volume 110.9 fL (83.0-100.0); Mean Platelet Volume 10.8 fL (9.4-12.4); Monocytes # 0.9 K/mcL (0.0-1.3); Monocytes % 12.4 %; Nucleated Red Blood Cells 0.3 /100 WBC (0); Red Cell Distribution Width 14.9 % (11.5-14.5); Segmented Neutrophils % 43.1 %; White Blood Count 6.9 K/mcL (4.3-11.1)
[2021-08-26 02:26] LABS: Platelet Count 81 K/mcL (140-400)
[2021-08-26 02:37] LABS: Calcium 9.4 mg/dL (8.6-10.3); Phosphorous 3.8 mg/dL (2.7-4.5); Potassium 4.4 mEq/L (3.5-5.1)
[2021-08-26 02:51] LABS: Platelet Estimate Decreased (Normal)
[2021-08-26 02:52] LABS: Macrocytosis Present (Not Present)
[2021-08-26] MEDS: *HR* Heparin 5,000 UNIT/ML VIAL SQ SCH ×3 (05:22→20:11)
[2021-08-26] MEDS: Aspirin 81 MG TAB.CHEW PO SCH (10:02)
[2021-08-26] MEDS: calcitrioL 0.25 MCG CAPSULE PO SCH (10:03)
[2021-08-26] MEDS: allopurinoL 100 MG TABLET PO SCH (10:03)
[2021-08-26] MEDS: Furosemide 40 MG TABLET PO SCH ×2 (10:07→16:48)
[2021-08-26] MEDS: Insulin LISPRO 300 UNITS/3 ML VIAL SUBQ SCH ×3 (10:07→16:48)
[2021-08-26] MEDS: carvediloL 6.25 MG TABLET PO SCH ×2 (10:07→16:48)
[2021-08-26] MEDS: hydrALAZINE 25 MG TABLET PO SCH ×2 (10:07→16:48)
[2021-08-26] MEDS: Nystatin POWDER 30 GM BOTTLE TP SCH (10:08)
[2021-08-26] MEDS: polyethylene glycoL 3350 17 GM POWD.PACK PO SCH (10:08)
[2021-08-26] MEDS: *HR* OxyCODONE/APAP 5/325 TABLET PO PRN (10:11)
[2021-08-26] MEDS: Famotidine 20 MG TABLET PO SCH (19:58)
[2021-08-26] MEDS: Latanoprost 2.5 ML BOTTLE BOTH EYES SCH (19:59)
[2021-08-27] MEDS: hydrALAZINE 25 MG TABLET PO SCH ×3 (00:57→15:57)
[2021-08-27 02:11] LABS: Immature Granulocytes % 2.2 % (0-4)
[2021-08-27 02:12] LABS: Basophils # 0.1 K/mcL (0.0-0.2); Basophils % 1.5 %; Eosinophils # 1.3 K/mcL (0.0-0.6); Eosinophils % 18.9 %; Hemoglobin 7.7 g/dL (11.5-15.4); Immature Platelets 6.3 % (1.1-6.1); Lymphocytes # 1.7 K/mcL (0.6-4.6); Lymphocytes % 25.1 %; Mean Corpuscular HGB Conc 29.6 g/dL (31.6-35.5); Mean Corpuscular Hemoglobin 32.9 pg (28.0-33.3); Mean Corpuscular Volume 111.1 fL (83.0-100.0); Mean Platelet Volume 11.3 fL (9.4-12.4); Monocytes # 0.9 K/mcL (0.0-1.3); Neutrophils # 2.7 K/mcL (1.6-8.9); Nucleated Red Blood Cells 0.3 /100 WBC (0); Red Blood Count 2.34 M/mcL (3.82-4.97); Red Cell Distribution Width 15.1 % (11.5-14.5); Segmented Neutrophils % 39.3 %; White Blood Count 6.8 K/mcL (4.3-11.1)
[2021-08-27 02:33] LABS: Calcium 9.7 mg/dL (8.6-10.3); Phosphorous 4.2 mg/dL (2.7-4.5); Potassium 4.8 mEq/L (3.5-5.1)
[2021-08-27 03:21] LABS: Platelet Count 92 K/mcL (140-400)
[2021-08-27 03:25] LABS: Hypochromasia Present (Not Present); Macrocytosis Present (Not Present); Platelet Estimate Decreased (Normal)
[2021-08-27 03:27] LABS: Microcytosis Present (Not Present)
[2021-08-27] MEDS: *HR* Heparin 5,000 UNIT/ML VIAL SQ SCH ×3 (03:45→21:18)
[2021-08-27] MEDS: calcitrioL 0.25 MCG CAPSULE PO SCH (07:17)
[2021-08-27] MEDS: Aspirin 81 MG TAB.CHEW PO SCH (07:17)
[2021-08-27] MEDS: polyethylene glycoL 3350 17 GM POWD.PACK PO SCH (07:17)
[2021-08-27] MEDS: allopurinoL 100 MG TABLET PO SCH (07:17)
[2021-08-27] MEDS: Nystatin POWDER 30 GM BOTTLE TP SCH (07:18)
[2021-08-27] MEDS: carvediloL 6.25 MG TABLET PO SCH ×2 (09:38→17:59)
[2021-08-27] MEDS: Insulin LISPRO 300 UNITS/3 ML VIAL SUBQ SCH ×3 (09:40→17:25)
[2021-08-27] MEDS ORDERED: 0.9 % Sodium Chloride 250 ML IVC PRN (09:48)
[2021-08-27] MEDS: Ethyl Chloride Spray Bottle (104 SPRAY/BOTTLE) TP PRN (11:25)
[2021-08-27] MEDS: Ondansetron 4 MG/2 ML VIAL IVP PRN (11:55)
[2021-08-27] MEDS: Furosemide 40 MG TABLET PO SCH ×2 (12:44→17:59)
[2021-08-27] MEDS: *HR* OxyCODONE/APAP 5/325 TABLET PO PRN (15:57)
[2021-08-27] MEDS: Famotidine 20 MG TABLET PO SCH (21:17)
[2021-08-27] MEDS: Latanoprost 2.5 ML BOTTLE BOTH EYES SCH (21:18)
[2021-08-28] MEDS: hydrALAZINE 25 MG TABLET PO SCH ×3 (00:37→15:44)
[2021-08-28 01:54] LABS: Hematocrit 25.8 % (35.3-44.9); Hemoglobin 7.6 g/dL (11.5-15.4); Mean Corpuscular HGB Conc 29.5 g/dL (31.6-35.5); Nucleated Red Blood Cells 0.3 /100 WBC (0)
[2021-08-28 01:56] LABS: Basophils # 0.1 K/mcL (0.0-0.2); Basophils % 1.1 %; Eosinophils # 0.9 K/mcL (0.0-0.6); Eosinophils % 8.7 %; Immature Granulocytes % 1.1 % (0-4); Immature Platelets 7.5 % (1.1-6.1); Lymphocytes # 1.4 K/mcL (0.6-4.6); Lymphocytes % 13.4 %; Mean Corpuscular Hemoglobin 32.8 pg (28.0-33.3); Mean Corpuscular Volume 111.2 fL (83.0-100.0); Mean Platelet Volume 11.3 fL (9.4-12.4); Monocytes # 0.8 K/mcL (0.0-1.3); Red Blood Count 2.32 M/mcL (3.82-4.97); Red Cell Distribution Width 15.4 % (11.5-14.5); Segmented Neutrophils % 67.7 %; White Blood Count 10.4 K/mcL (4.3-11.1)
[2021-08-28 02:00] LABS: Platelet Count 71 K/mcL (140-400)
[2021-08-28 02:09] LABS: Calcium 9.1 mg/dL (8.6-10.3); Phosphorous 3.4 mg/dL (2.7-4.5); Potassium 4.3 mEq/L (3.5-5.1)
[2021-08-28] MEDS: *HR* Heparin 5,000 UNIT/ML VIAL SQ SCH ×3 (05:39→21:37)
[2021-08-28] MEDS: Aspirin 81 MG TAB.CHEW PO SCH (08:41)
[2021-08-28] MEDS: Furosemide 40 MG TABLET PO SCH ×2 (08:41→15:43)
[2021-08-28] MEDS: calcitrioL 0.25 MCG CAPSULE PO SCH (08:41)
[2021-08-28] MEDS: carvediloL 6.25 MG TABLET PO SCH ×2 (08:42→15:43)
[2021-08-28] MEDS: allopurinoL 100 MG TABLET PO SCH (08:42)
[2021-08-28] MEDS: Insulin LISPRO 300 UNITS/3 ML VIAL SUBQ SCH ×3 (08:42→16:57)
[2021-08-28] MEDS: Nystatin POWDER 30 GM BOTTLE TP SCH (08:43)
[2021-08-28] MEDS: polyethylene glycoL 3350 17 GM POWD.PACK PO SCH (08:43)
[2021-08-28] MEDS: *HR* OxyCODONE/APAP 5/325 TABLET PO PRN (15:43)
[2021-08-28] MEDS: Famotidine 20 MG TABLET PO SCH (21:37)
[2021-08-28] MEDS: Latanoprost 2.5 ML BOTTLE BOTH EYES SCH (21:38)
[2021-08-29] MEDS: hydrALAZINE 25 MG TABLET PO SCH ×4 (00:17→23:42)
[2021-08-29] MEDS: *HR* Heparin 5,000 UNIT/ML VIAL SQ SCH ×3 (05:07→21:01)
[2021-08-29 06:27] LABS: Basophils # 0.1 K/mcL (0.0-0.2); Basophils % 1.6 %; Eosinophils # 1.3 K/mcL (0.0-0.6); Eosinophils % 19.3 %; Hematocrit 27.3 % (35.3-44.9); Hemoglobin 7.9 g/dL (11.5-15.4); Immature Granulocytes % 1.2 % (0-4); Immature Platelets 6.8 % (1.1-6.1); Lymphocytes # 1.6 K/mcL (0.6-4.6); Lymphocytes % 23.1 %; Mean Corpuscular HGB Conc 28.9 g/dL (31.6-35.5); Mean Corpuscular Hemoglobin 32.9 pg (28.0-33.3); Mean Corpuscular Volume 113.8 fL (83.0-100.0); Mean Platelet Volume 11.1 fL (9.4-12.4); Monocytes # 0.8 K/mcL (0.0-1.3); Monocytes % 11.4 %; Nucleated Red Blood Cells 0.4 /100 WBC (0); Red Cell Distribution Width 15.2 % (11.5-14.5); Segmented Neutrophils % 43.4 %; White Blood Count 6.9 K/mcL (4.3-11.1)
[2021-08-29 06:41] LABS: Platelet Count 88 K/mcL (140-400)
[2021-08-29 06:42] LABS: Anisocytosis 1+ (Not Present); Hypochromasia Present (Not Present); Macrocytosis Present (Not Present); Platelet Estimate Decreased (Normal)
[2021-08-29 08:20] LABS: Calcium 9.8 mg/dL (8.6-10.3); Phosphorous 4.2 mg/dL (2.7-4.5); Potassium 4.4 mEq/L (3.5-5.1)
[2021-08-29] MEDS ORDERED: 0.9 % Sodium Chloride 250 ML IVC PRN (08:39)
[2021-08-29] MEDS: Nystatin POWDER 30 GM BOTTLE TP SCH (09:00)
[2021-08-29] MEDS: Aspirin 81 MG TAB.CHEW PO SCH (09:10)
[2021-08-29] MEDS: allopurinoL 100 MG TABLET PO SCH (09:13)
[2021-08-29] MEDS: *HR* OxyCODONE/APAP 5/325 TABLET PO PRN (09:14)
[2021-08-29] MEDS: calcitrioL 0.25 MCG CAPSULE PO SCH (09:14)
[2021-08-29] MEDS: Insulin LISPRO 300 UNITS/3 ML VIAL SUBQ SCH ×3 (09:15→17:27)
[2021-08-29] MEDS: polyethylene glycoL 3350 17 GM POWD.PACK PO SCH (09:24)
[2021-08-29] MEDS: carvediloL 6.25 MG TABLET PO SCH ×2 (09:25→15:32)
[2021-08-29] MEDS: Furosemide 40 MG TABLET PO SCH ×2 (09:25→15:32)
[2021-08-29] MEDS ORDERED: Ondansetron ODT 4 MG TAB.RAPDIS SL PRN (10:43)
[2021-08-29] MEDS: Ondansetron 4 MG/2 ML VIAL IVP PRN (11:21)
[2021-08-29] MEDS ORDERED: Ondansetron 4 MG/2 ML VIAL IVP STA (12:51)
[2021-08-29] MEDS: Famotidine 20 MG TABLET PO SCH (19:33)
[2021-08-29] MEDS: Latanoprost 2.5 ML BOTTLE BOTH EYES SCH (19:33)
[2021-08-30] MEDS: *HR* Heparin 5,000 UNIT/ML VIAL SQ SCH (05:04)
[2021-08-30 05:51] LABS: Immature Granulocytes % 0.8 % (0-4); Monocytes % 10.5 %; Red Blood Count 2.27 M/mcL (3.82-4.97)
[2021-08-30 05:53] LABS: Basophils # 0.1 K/mcL (0.0-0.2); Basophils % 1.3 %; Eosinophils # 1.3 K/mcL (0.0-0.6); Eosinophils % 16.8 %; Hematocrit 25.6 % (35.3-44.9); Hemoglobin 7.5 g/dL (11.5-15.4); Immature Platelets 8.1 % (1.1-6.1); Lymphocytes # 1.5 K/mcL (0.6-4.6); Lymphocytes % 19.8 %; Mean Corpuscular HGB Conc 29.3 g/dL (31.6-35.5); Mean Corpuscular Volume 112.8 fL (83.0-100.0); Mean Platelet Volume 11.5 fL (9.4-12.4); Monocytes # 0.8 K/mcL (0.0-1.3); Neutrophils # 3.8 K/mcL (1.6-8.9); Nucleated Red Blood Cells 0.4 /100 WBC (0); Red Cell Distribution Width 15.3 % (11.5-14.5); Segmented Neutrophils % 50.8 %; White Blood Count 7.5 K/mcL (4.3-11.1)
[2021-08-30 05:55] LABS: Platelet Count 65 K/mcL (140-400)
[2021-08-30 06:13] LABS: Calcium 9.4 mg/dL (8.6-10.3); Phosphorous 3.6 mg/dL (2.7-4.5); Potassium 4.6 mEq/L (3.5-5.1)
[2021-08-30 06:14] VITALS: O2SAT 100
[2021-08-30 07:05] LABS: Hypochromasia Present (Not Present); Macrocytosis Present (Not Present); Polychromasia 1+ (Not Present)
[2021-08-30 07:06] LABS: Platelet Estimate Decreased (Normal)
[2021-08-30] MEDS: Insulin LISPRO 300 UNITS/3 ML VIAL SUBQ SCH ×2 (07:44→11:32)
[2021-08-30] MEDS ORDERED: 0.9 % Sodium Chloride 250 ML IVC PRN (08:02)
[2021-08-30] MEDS: calcitrioL 0.25 MCG CAPSULE PO SCH (08:23)
[2021-08-30] MEDS: Aspirin 81 MG TAB.CHEW PO SCH (08:23)
[2021-08-30] MEDS: allopurinoL 100 MG TABLET PO SCH (08:23)
[2021-08-30] MEDS: Furosemide 40 MG TABLET PO SCH (08:23)
[2021-08-30] MEDS: hydrALAZINE 25 MG TABLET PO SCH (08:23)
[2021-08-30] MEDS: Nystatin POWDER 30 GM BOTTLE TP SCH (08:24)
[2021-08-30] MEDS: carvediloL 6.25 MG TABLET PO SCH (08:24)
[2021-08-30] MEDS: polyethylene glycoL 3350 17 GM POWD.PACK PO SCH (08:24)
[2021-08-30] MEDS: Ondansetron 4 MG/2 ML VIAL IVP PRN (09:31)
[2021-08-30] MEDS: Ethyl Chloride Spray Bottle (104 SPRAY/BOTTLE) TP PRN (09:31)
[2021-08-30] MEDS ORDERED: Ondansetron 4 MG/2 ML VIAL IVP ONE (10:14)
[2021-08-30 14:43] VITALS: BP 162/83; PULSE 76; TEMP 98.5
== END 2021-08-30 15:04 | DRG 194 ==
LOC: 2ANU 19:17 → EMEROOARM 19:17 → 2ANU 08-06 02:00 → SUATTDRO 08-07 14:22 → 3NENU 08-14 18:23
PROVIDERS: ADMIT Hospitalist; ATTEND Internal Medicine

== ENCOUNTER 2021-11-15 19:11 | Observation (INO) ==
[2021-11-15] MEDS ORDERED: Iopamidol - 370 500 ML MLS IVP ONE (19:45)
[2021-11-15 20:33] LABS: Hematocrit 34.2 % (35.3-44.9); Hemoglobin 10.3 g/dL (11.5-15.4); Mean Corpuscular HGB Conc 30.1 g/dL (31.6-35.5); Mean Corpuscular Hemoglobin 30.5 pg (28.0-33.3); Mean Corpuscular Volume 101.2 fL (83.0-100.0); Mean Platelet Volume 10.7 fL (9.4-12.4); Platelet Count 228 K/mcL (140-400); Red Blood Count 3.38 M/mcL (3.82-4.97); Red Cell Distribution Width 15.2 % (11.5-14.5); White Blood Count 17.4 K/mcL (4.3-11.1)
[2021-11-15 20:49] LABS: Calcium 9.4 mg/dL (8.6-10.3); Potassium 3.8 mEq/L (3.5-5.1)
[2021-11-15] MEDS ORDERED: Ondansetron 4 MG/2 ML VIAL IVP ONE (20:49)
[2021-11-15] MEDS ORDERED: *HR* FentaNYL (PF) 100 MCG/2 ML VIAL IVP STA (20:50)
[2021-11-15] MEDS ORDERED: Vancomycin (wt based) 1,000 MG VIAL IV STA (23:17)
[2021-11-15] MEDS ORDERED: cefTRIAXone 1,000 MG in 0.9 % Sodium Chloride Mini Bag 100 ML IVPB ONE (23:18)
[2021-11-15] MEDS ORDERED: Vancomycin 1,750 MG in 0.9 % Sodium Chloride 250 ML IVPB SCH (23:45)
[2021-11-15] MEDS ORDERED: Ondansetron 4 MG/2 ML VIAL IVP PRN (23:57)
[2021-11-15] MEDS ORDERED: Naloxone 0.4 MG/ML INJ IVP PRN (23:57)
[2021-11-16] MEDS ORDERED: Vancomycin 1,500 MG/265 ML IV.SOLN IVPB ONE (00:01)
[2021-11-16 02:41] LABS: Eosinophils % 4.7 %; Hematocrit 31.5 % (35.3-44.9); Hemoglobin 9.4 g/dL (11.5-15.4); Immature Granulocytes % 0.4 % (0-4); Lymphocytes % 16.5 %; Mean Corpuscular HGB Conc 29.8 g/dL (31.6-35.5); Mean Corpuscular Hemoglobin 30.5 pg (28.0-33.3); Mean Corpuscular Volume 102.3 fL (83.0-100.0); Mean Platelet Volume 10.3 fL (9.4-12.4); Monocytes % 10.5 %; Neutrophils # 9.1 K/mcL (1.6-8.9); Platelet Count 206 K/mcL (140-400); Red Blood Count 3.08 M/mcL (3.82-4.97); Red Cell Distribution Width 15.5 % (11.5-14.5); Segmented Neutrophils % 66.9 %; White Blood Count 13.5 K/mcL (4.3-11.1)
[2021-11-16 02:42] LABS: Basophils # 0.1 K/mcL (0.0-0.2); Eosinophils # 0.6 K/mcL (0.0-0.6); Lymphocytes # 2.2 K/mcL (0.6-4.6); Monocytes # 1.4 K/mcL (0.0-1.3); Nucleated Red Blood Cells 0.1 /100 WBC (0)
[2021-11-16 02:49] LABS: INR 1.3; Prothrombin Time 14.9 Seconds (9.4-12.1)
[2021-11-16 02:59] LABS: Albumin 3.1 g/dL (3.5-5.7); Albumin/Globulin Ratio 1.1 (1.1-2.2); Bilirubin,Direct 0.1 mg/dL (0.0-0.2); Bilirubin,Indirect 0.3 mg/dL (0.0-1.0); Bilirubin,Total 0.4 mg/dL (0.3-1.0); Calcium 9.4 mg/dL (8.6-10.3); Globulin 2.8 g/dL (2.4-3.5); Magnesium 1.8 mg/dL (1.6-2.6); Potassium 3.5 mEq/L (3.5-5.1); Total Protein 5.9 g/dL (6.4-8.9)
[2021-11-16] MEDS: cefTRIAXone 1,000 MG in 0.9 % Sodium Chloride Mini Bag 100 ML IVPB SCH (09:25)
[2021-11-16 12:42] LABS: Phosphorous 4.9 mg/dL (2.7-4.5)
[2021-11-17 02:53] LABS: Basophils # 0.1 K/mcL (0.0-0.2); Basophils % 1.1 %; Eosinophils # 0.8 K/mcL (0.0-0.6); Eosinophils % 6.8 %; Hematocrit 32.6 % (35.3-44.9); Hemoglobin 9.8 g/dL (11.5-15.4); Immature Granulocytes % 0.9 % (0-4); Lymphocytes # 1.9 K/mcL (0.6-4.6); Lymphocytes % 15.8 %; Mean Corpuscular HGB Conc 30.1 g/dL (31.6-35.5); Mean Corpuscular Hemoglobin 30.4 pg (28.0-33.3); Mean Corpuscular Volume 101.2 fL (83.0-100.0); Mean Platelet Volume 10.5 fL (9.4-12.4); Monocytes # 1.4 K/mcL (0.0-1.3); Monocytes % 12.2 %; Neutrophils # 7.5 K/mcL (1.6-8.9); Nucleated Red Blood Cells 0.2 /100 WBC (0); Platelet Count 245 K/mcL (140-400); Red Blood Count 3.22 M/mcL (3.82-4.97); Red Cell Distribution Width 15.4 % (11.5-14.5); Segmented Neutrophils % 63.2 %; White Blood Count 11.8 K/mcL (4.3-11.1)
[2021-11-17 03:54] LABS: Albumin 3.1 g/dL (3.5-5.7); Calcium 9.1 mg/dL (8.6-10.3); Magnesium 2.1 mg/dL (1.6-2.6)
[2021-11-17] MEDS ORDERED: Nystatin POWDER 30 GM BOTTLE TP PRN (08:48)
[2021-11-17] MEDS ORDERED: Ondansetron ODT 4 MG TAB.RAPDIS SL PRN (09:11)
[2021-11-17] MEDS: Aspirin Enteric Coated 81 MG Tablet PO SCH (09:45)
[2021-11-17] MEDS: calcitrioL 0.25 MCG CAPSULE PO SCH (09:45)
[2021-11-17] MEDS: allopurinoL 100 MG TABLET PO SCH (09:45)
[2021-11-17] MEDS: lisinopriL 10 MG TABLET PO SCH (09:45)
[2021-11-17] MEDS: Furosemide 40 MG TABLET PO SCH ×2 (09:45→21:28)
[2021-11-17] MEDS: cefTRIAXone 1,000 MG in 0.9 % Sodium Chloride Mini Bag 100 ML IVPB SCH (10:00)
[2021-11-17] MEDS: *HR* OxyCODONE/APAP 5/325 TABLET PO PRN (10:30)
[2021-11-17] MEDS: carvediloL 6.25 MG TABLET PO SCH ×2 (10:49→17:08)
[2021-11-17] MEDS: Famotidine 20 MG TABLET PO SCH (12:40)
[2021-11-17] MEDS: Ascorbic Acid 500 MG TABLET PO SCH (17:08)
[2021-11-17] MEDS: hydrALAZINE 25 MG TABLET PO SCH ×2 (17:08→23:16)
[2021-11-17] MEDS ORDERED: Latanoprost 2.5 ML BOTTLE BOTH EYES SCH (21:00)
[2021-11-18] MEDS: *HR* OxyCODONE/APAP 5/325 TABLET PO PRN ×2 (04:31→17:22)
[2021-11-18 04:57] LABS: Bacteria,Urine Few per hpf (None-Few); Bilirubin,Urine Negative (Negative); Blood,Urine Negative (Negative); Clarity,Urine Turbid (Clear); Color,Urine Yellow (Yellow); Glucose,Urine (UA) Normal (Normal); Ketones,Urine Negative (Negative); Leukocyte Esterase,Urine Moderate (Negative); Mucus,Urine Few per lpf (None-Few); Nitrite,Urine Negative (Negative); Protein,Urine >=300 mg/dL (Neg-Trace); RBC,Urine 50-100 per hpf (0-3); Specific Gravity,Urine 1.028 (1.010-1.025); Squamous Epithelial Cell,Urine Many per hpf (None-Few); Urobilinogen,Urine Normal (Normal); WBC,Urine 15-30 per hpf (0-3)
[2021-11-18 06:04] LABS: Basophils # 0.1 K/mcL (0.0-0.2); Basophils % 1.1 %; Eosinophils # 1.1 K/mcL (0.0-0.6); Hematocrit 31.2 % (35.3-44.9); Hemoglobin 9.4 g/dL (11.5-15.4); Immature Granulocytes % 0.4 % (0-4); Lymphocytes # 1.5 K/mcL (0.6-4.6); Lymphocytes % 11.9 %; Mean Corpuscular HGB Conc 30.1 g/dL (31.6-35.5); Mean Corpuscular Hemoglobin 30.2 pg (28.0-33.3); Mean Corpuscular Volume 100.3 fL (83.0-100.0); Mean Platelet Volume 10.2 fL (9.4-12.4); Monocytes # 1.4 K/mcL (0.0-1.3); Monocytes % 11.4 %; Neutrophils # 8.1 K/mcL (1.6-8.9); Platelet Count 276 K/mcL (140-400); Red Blood Count 3.11 M/mcL (3.82-4.97); Red Cell Distribution Width 15.6 % (11.5-14.5); Segmented Neutrophils % 66.2 %; White Blood Count 12.3 K/mcL (4.3-11.1)
[2021-11-18 06:30] LABS: Albumin 3.2 g/dL (3.5-5.7); Calcium 9.5 mg/dL (8.6-10.3); Magnesium 2.2 mg/dL (1.6-2.6); Phosphorous 6.7 mg/dL (2.7-4.5)
[2021-11-18 06:31] LABS: Potassium 4.3 mEq/L (3.5-5.1)
[2021-11-18] MEDS ORDERED: Ethyl Chloride Spray Bottle (104 SPRAY/BOTTLE) TP PRN (08:09)
[2021-11-18] MEDS ORDERED: 0.9 % Sodium Chloride 250 ML IVC PRN (08:09)
[2021-11-18] MEDS ORDERED: 0.9 % Sodium Chloride 2,000 ML PRIME SCH (08:15)
[2021-11-18] MEDS: Furosemide 40 MG TABLET PO SCH (08:23)
[2021-11-18] MEDS: Ascorbic Acid 500 MG TABLET PO SCH ×2 (08:23→17:22)
[2021-11-18] MEDS: Famotidine 20 MG TABLET PO SCH (08:24)
[2021-11-18] MEDS: calcitrioL 0.25 MCG CAPSULE PO SCH (08:24)
[2021-11-18] MEDS: Aspirin Enteric Coated 81 MG Tablet PO SCH (08:25)
[2021-11-18] MEDS: hydrALAZINE 25 MG TABLET PO SCH ×2 (08:25→17:22)
[2021-11-18] MEDS: lisinopriL 10 MG TABLET PO SCH (08:25)
[2021-11-18] MEDS: cefTRIAXone 1,000 MG in 0.9 % Sodium Chloride Mini Bag 100 ML IVPB SCH (08:26)
[2021-11-18] MEDS: allopurinoL 100 MG TABLET PO SCH (08:26)
[2021-11-18] MEDS: carvediloL 6.25 MG TABLET PO SCH ×2 (08:28→17:22)
[2021-11-18 19:34] VITALS: BP 121/75; PULSE 72; TEMP 97.5; O2SAT 92
[2021-11-19 21:57] LABS: Hepatitis B Surface Antibody < 3.10 mIU/mL
[2021-11-19 22:07] LABS: Hepatitis B Surface Antigen Nonreactive (Nonreactive)
== END 2021-11-18 19:30 | disposition home or self-care (01) ==
LOC: EMEROOARM 19:11 → 3NENU 19:11
PROVIDERS: ADMIT Internal Medicine; ATTEND Internal Medicine